=== PATIENT | male | born 1940 | race Caucasian/White ===

== ENCOUNTER 2016-11-02 13:44 | Inpatient (IN) | payer OTHER, BC ==
[~2016-11-02] VITALS: Ht 175.3 cm; Wt 65.5 kg
[~2016-11-02 13:44] MED LIST: ATORVASTATIN CA40 MG PO; CANASA1000 MG PR; CEFPODOXIME PR100 MG PO; CLOBETASOL PRO100 GM TP; CLOBETASOL PROP50 ML TP; CLOPIDOGREL75 MG PO; COLACE100 MG PO; DEXTROSE 50%50 ML IV; DIASTAT2.5 MG PO; EXTRA STRENGTH500 M1 PO; GLIPIZIDE XL5 MG PO; GLIPIZIDE5 MG PO; GLUCAGON1 MG IM; GLUCOTROL XL5 MG PO; GLUCOTROL5 MG PO; HEPARIN SO5000 UNITS SQ; HUMALOG100 UNIT/2 SC; LANTUS 3 M100 UNITS1 SC; LANTUS 3 M100 UNITS1 SQ; LIDOCAINE700 MG TD; LIPITOR40 MG PO; LO-DOSE ASPIRIN81 M1 PO; LOPRESSOR50 MG PO; MAALOX ADVANCE355 ML PO; METFORMIN HCL500 M4 PO; METFORMIN HCL500 MG PO; METHOTREXATE2.5 MG PO; METOPROLOL TART25 MG PO; MIRALAX17 GM PO; NITROSTAT0.4 MG SL; NOVOLOG PE100 UNITS/ SQ; ONDANSETRON HCL4 MG PO; OXYCODONE HCL10 MG PO; PHENERGAN-CODE120 ML PO; POLYETHYLENE GL17 GM PO; PRILOSEC OTC20 MG PO; PRILOSEC20 MG PO; PROTONIX40 MG PO; REGLAN10 MG PO; ROXICODONE5 MG PO; SENOKOT,SENN1 TABLET PO; SORE THROAT LO1 EAC2 PO; ULTRAVATE15 G1 TP; VENTOLIN HFA18 GM IH
[2016-11-02 14:54] LABS: EOSINOPHIL (%) 0.5 % (0-5); HEMATOCRIT 30.1 % (38.0-50.0); IMMATURE GRANULOCYTE (%) 0.2 % (0.0-0.7); INSTRUMENT ABS NEUTROPHIL CT 2.9 K/uL; LYMPHOCYTE COUNT 1.1 K/uL (1.0-2.8); MCH 30.9 PG (29.0-34.0); MCHC 31.2 G/DL (30.0-36.0); MEAN PLAT.VOLUME 9.8 uM^3 (9.0-12.4); MONOCYTE (%) 3.3 % (3-12); MONOCYTE COUNT 0.1 K/uL (0-0.8); NEUTROPHIL (%) 70.1 % (45-76); NEUTROPHIL COUNT 2.9 K/uL (1.8-6.4); NRBC (%) 0.5 /100 WBC (0-0); PLATELET COUNT 199 K/uL (156-360); RBC DIS.WIDTH-CV 18.5 % (11.8-14.6); RBC DIS.WIDTH-SD 66.2 % (39-53); RED BLOOD COUNT 3.04 M/uL (4.00-5.50); WHITE BLOOD COUNT 4.2 K/uL (4.1-10.2)
[2016-11-02 14:59] LABS: INTER. NORMALIZED RATIO 1.5; PROTHROMBIN TIME 16.5 SEC (10.2-12.9)
[2016-11-02 15:02] LABS: PTT 32.2 SEC (25-37)
[2016-11-02 15:04] LABS: CHLORIDE 103 mEq/L (99-109); POTASSIUM 4.5 mEq/L (3.7-5.4); SODIUM 137 mEq/L (136-147)
[2016-11-02 15:06] LABS: GLUCOSE 285 mg/dL (70-99)
[2016-11-02 15:07] LABS: ANION GAP 10 MEQ/L (2-14)
[2016-11-02 15:10] LABS: GFR ESTIMATE (CALCULATED) 45 mL/min/
[2016-11-02 15:11] LABS: UREA NITROGEN (BUN) 27 mg/dL (9-23)
[2016-11-02 15:21] LABS: ADD MIUA? YES; BILIRUBIN NEGATIVE; BLOOD SMALL; COLOR YELLOW ((YELLOW)); GLUCOSE (STRIP) >=500; KETONES NEGATIVE; LEUKOCYTES SMALL; NITRITE NEGATIVE; PROTEIN (STRIP) 30; SPECIFIC GRAVITY 1.016 (1.000-1.030); UROBILINOGEN 0.2 MG/DL (0.2-1.0)
[2016-11-02 15:41] LABS: BACTERIA NONE SEEN /HPF; EPITHELIAL CELLS RARE /HPF; MUCUS NONE SEEN /LPF; UCUL ADDED? YES; WHITE BLOOD CELLS 20-30 /HPF (0-5)
[2016-11-02] MEDS ORDERED: PLAVIX75 MG PO (16:14)
[2016-11-02] MEDS ORDERED: MIRALAX255 GM PO (16:15)
[2016-11-02] MEDS ORDERED: PROTONIX40 MG PO (16:16)
[2016-11-02] MEDS ORDERED: PREDNISONE5 MG PO (16:17)
[2016-11-02] MEDS ORDERED: BACTRIM,SEPT1 TABLET PO (16:17)
[2016-11-02] MEDS ORDERED: SERTRALINE HCL50 MG PO (16:17)
[2016-11-02] MEDS ORDERED: TRAZODONE HCL50 MG PO (16:17)
[2016-11-02 17:38] VITALS: BP 128/72
[2016-11-02 18:47] VITALS: BP 150/78
[2016-11-02 21:08] LABS: POINT-OF-CARE METER ID UU14208750
[2016-11-02 23:44] VITALS: BP 158/77
[2016-11-03 03:11] VITALS: BP 152/75
[2016-11-03 07:50] VITALS: BP 123/77
[2016-11-03 08:37] LABS: HEMATOCRIT 32.8 % (38.0-50.0); MCV 101.5 FL (86-99)
[2016-11-03 09:51] LABS: POINT-OF-CARE METER ID UU14162508
[2016-11-03 11:40] VITALS: BP 139/80
[2016-11-03 11:54] LABS: POINT-OF-CARE METER ID UU14208750
[2016-11-03 12:50] LABS: ANION GAP 11 MEQ/L (2-14); CHLORIDE 102 MEQ/L (99-109); POTASSIUM 4.1 MEQ/L (3.7-5.4); SAMPLE HEMOLYSIS CHECK 0; SAMPLE ICTERIC CHECK 0; SAMPLE LIPEMIA CHECK 0; SODIUM 139 MEQ/L (136-147)
[2016-11-03 12:56] LABS: GFR ESTIMATE (CALCULATED) > 59 mL/min/; GLUCOSE 183 mg/dL (70-99); UREA NITROGEN (BUN) 17 mg/dL (9-23)
[2016-11-03] MEDS ORDERED: CANASA1000 MG PR (15:01)
[2016-11-03 15:10] VITALS: BP 126/77
== END 2016-11-03 16:56 | disposition home or self-care (01) | DRG 378 ==
LOC: EME 13:44 → 2EAST 16:11 → EDOF 16:11 → ENRESERV 16:15 → 2EAST 17:27
PROVIDERS: Emergency Medicine; Internal Medicine
DX: K92.1 Melena (principal); N17.9 Acute kidney failure, unspecified; K62.6 Ulcer of anus and rectum; K64.9 Unspecified hemorrhoids; E86.0 Dehydration; K59.00 Constipation, unspecified; D64.9 Anemia, unspecified; I10 Essential (primary) hypertension; I25.10 Atherosclerotic heart disease of native coronary artery without angina pectoris; E78.5 Hyperlipidemia, unspecified; E11.9 Type 2 diabetes mellitus without complications; R32 Unspecified urinary incontinence; K21.9 Gastro-esophageal reflux disease without esophagitis; L40.9 Psoriasis, unspecified; F39 Unspecified mood [affective] disorder; Z79.02 Long term (current) use of antithrombotics/antiplatelets; Z79.4 Long term (current) use of insulin; Z79.82 Long term (current) use of aspirin; Z87.440 Personal history of urinary (tract) infections; Z85.46 Personal history of malignant neoplasm of prostate; Z95.1 Presence of aortocoronary bypass graft; Z95.5 Presence of coronary angioplasty implant and graft; Z92.3 Personal history of irradiation; Z87.891 Personal history of nicotine dependence; I25.2 Old myocardial infarction; Z86.73 Personal history of transient ischemic attack (TIA), and cerebral infarction without residual deficits
CPT/HCPCS: 71010; 80048; 81003; 82948; 85014; 85018; 85025; 85610; 85730; 86850; 86900; 86901; 87086 GA; 99281; 99285; C9113; J0696; J1815; J7030; J7050; J7512

== ENCOUNTER 2016-11-25 15:51 | Emergency (ER) | payer OTHER, BC ==
[~2016-11-25] VITALS: Ht 175.3 cm; Wt 62.7 kg
[~2016-11-25 15:51] MED LIST changes: +BACTRIM,SEPT1 TABLET PO; +MIRALAX255 GM PO; +PLAVIX75 MG PO; +PREDNISONE5 MG PO; +SERTRALINE HCL50 MG PO; +TRAZODONE HCL50 MG PO
[2016-11-25 17:58] LABS: HEMATOCRIT 29.8 % (38.0-50.0); MCH 31.6 PG (29.0-34.0); MCHC 31.2 G/DL (30.0-36.0); MCV 101.4 FL (86-99); MEAN PLAT.VOLUME 8.8 uM^3 (9.0-12.4); PLATELET COUNT 220 K/uL (156-360); RBC DIS.WIDTH-CV 17.8 % (11.8-14.6); RED BLOOD COUNT 2.94 M/uL (4.00-5.50); WHITE BLOOD COUNT 4.9 K/uL (4.1-10.2)
[2016-11-25 18:08] LABS: CHLORIDE 102 mEq/L (99-109); POTASSIUM 4.6 mEq/L (3.7-5.4); SODIUM 139 mEq/L (136-147)
[2016-11-25 18:11] LABS: GLUCOSE 235 mg/dL (70-99)
[2016-11-25 18:12] LABS: ANION GAP 14 MEQ/L (2-14); TOTAL BILIRUBIN 0.4 mg/dL (0.0-1.0)
[2016-11-25 18:14] LABS: ALKALINE PHOSPHATASE 162 IU/L (3-129); GFR ESTIMATE (CALCULATED) 48 mL/min/
[2016-11-25 18:15] LABS: UREA NITROGEN (BUN) 35 mg/dL (9-23)
[2016-11-25 18:19] LABS: ADD MIUA? YES; BILIRUBIN NEGATIVE; BLOOD MODERATE; COLOR YELLOW ((YELLOW)); GLUCOSE (STRIP) >=500; KETONES NEGATIVE; LEUKOCYTES LARGE; NITRITE NEGATIVE; PROTEIN (STRIP) 100; SPECIFIC GRAVITY 1.024 (1.000-1.030); UROBILINOGEN 0.2 MG/DL (0.2-1.0)
[2016-11-25 18:25] LABS: BACTERIA RARE /HPF; EPITHELIAL CELLS RARE /HPF; HYALINE CASTS 0-5 /LPF; MUCUS TRACE /LPF; RED BLOOD CELLS 15-20 /HPF (0-5); UCUL ADDED? YES; WHITE BLOOD CELLS TNTC /HPF (0-5)
[2016-11-25] MEDS ORDERED: NORCO 5/3251 TABLET PO (21:06)
[2016-11-25 21:54] VITALS: BP 111/79
== END 2016-11-25 21:56 | disposition home or self-care (01) ==
LOC: EME 15:51
PROVIDERS: Physician Assistant
DX: S22.088A Other fracture of T11-T12 vertebra, initial encounter for closed fracture (principal); S32.018A Other fracture of first lumbar vertebra, initial encounter for closed fracture; W19.XXXA Unspecified fall, initial encounter; D64.9 Anemia, unspecified; N39.498 Other specified urinary incontinence; Z91.81 History of falling; R29.6 Repeated falls; I10 Essential (primary) hypertension; I25.2 Old myocardial infarction; K21.9 Gastro-esophageal reflux disease without esophagitis; Z79.02 Long term (current) use of antithrombotics/antiplatelets; Z79.4 Long term (current) use of insulin; Z85.46 Personal history of malignant neoplasm of prostate; Z86.73 Personal history of transient ischemic attack (TIA), and cerebral infarction without residual deficits; Z87.891 Personal history of nicotine dependence; Z95.1 Presence of aortocoronary bypass graft; Z79.82 Long term (current) use of aspirin
CPT/HCPCS: 72128; 72131; 80053; 81003; 85027; 87077; 87086; 87186; 99281; 99285

== ENCOUNTER 2017-01-16 19:06 | Inpatient (IN) | payer OTHER, BC ==
[~2017-01-16] VITALS: Ht 175.3 cm; Wt 54.4 kg
[~2017-01-16 19:06] MED LIST changes: +NORCO 5/3251 TABLET PO
[2017-01-16 22:38] LABS: EOSINOPHIL (%) 0.2 % (0-5); HEMATOCRIT 27.7 % (38.0-50.0); IMMATURE GRANULOCYTE (%) 0.6 % (0.0-0.7); INSTRUMENT ABS NEUTROPHIL CT 3.5 K/uL; LYMPHOCYTE COUNT 1.8 K/uL (1.0-2.8); MCH 31.3 PG (29.0-34.0); MCHC 30.3 G/DL (30.0-36.0); MCV 103.4 FL (86-99); MEAN PLAT.VOLUME 8.7 uM^3 (9.0-12.4); MONOCYTE (%) 1.8 % (3-12); MONOCYTE COUNT 0.1 K/uL (0-0.8); NEUTROPHIL (%) 64.4 % (45-76); NEUTROPHIL COUNT 3.5 K/uL (1.8-6.4); PLATELET COUNT 267 K/uL (156-360); RBC DIS.WIDTH-CV 18.6 % (11.8-14.6); RED BLOOD COUNT 2.68 M/uL (4.00-5.50); WHITE BLOOD COUNT 5.5 K/uL (4.1-10.2)
[2017-01-16 22:48] LABS: CHLORIDE 102 mEq/L (99-109); SODIUM 140 mEq/L (136-147)
[2017-01-16 22:49] LABS: GLUCOSE 94 mg/dL (70-99)
[2017-01-16 22:51] LABS: ANION GAP 11 MEQ/L (2-14)
[2017-01-16 22:53] LABS: GFR ESTIMATE (CALCULATED) 52 mL/min/
[2017-01-16 22:54] LABS: UREA NITROGEN (BUN) 27 mg/dL (9-23)
[2017-01-17] MEDS ORDERED: HYDROCODON-ACE1 EAC8 PO (00:19)
[2017-01-17 02:45] VITALS: BP 128/68
[2017-01-17 02:48] VITALS: BP 128/68
[2017-01-17 05:54] LABS: ADD MIUA? YES; BILIRUBIN NEGATIVE; BLOOD SMALL; COLOR YELLOW ((YELLOW)); GLUCOSE (STRIP) 50; KETONES NEGATIVE; LEUKOCYTES LARGE; NITRITE NEGATIVE; PROTEIN (STRIP) 100; SPECIFIC GRAVITY 1.012 (1.000-1.030); UROBILINOGEN 0.2 MG/DL (0.2-1.0)
[2017-01-17 07:01] LABS: POINT-OF-CARE METER ID UU14208753
[2017-01-17 07:19] LABS: EPITHELIAL CELLS NONE SEEN /HPF; MUCUS NONE SEEN /LPF; RED BLOOD CELLS NONE SEEN /HPF (0-5)
[2017-01-17 07:20] LABS: BACTERIA 2+ /HPF; CRYSTALS PRESENT; UCUL ADDED? YES
[2017-01-17 07:29] VITALS: BP 132/77
[2017-01-17 11:31] LABS: POINT-OF-CARE METER ID UU14188577
[2017-01-17 15:11] VITALS: BP 112/69
[2017-01-17 16:57] LABS: HEMATOCRIT 24.4 % (38.0-50.0); MCH 31.4 PG (29.0-34.0); MCHC 30.7 G/DL (30.0-36.0); MCV 102.1 FL (86-99); MEAN PLAT.VOLUME 8.9 uM^3 (9.0-12.4); PLATELET COUNT 263 K/uL (156-360); RBC DIS.WIDTH-CV 18.2 % (11.8-14.6); RBC DIS.WIDTH-SD 68.3 % (39-53); RED BLOOD COUNT 2.39 M/uL (4.00-5.50)
[2017-01-17 17:10] LABS: ANION GAP 11 MEQ/L (2-14); CHLORIDE 101 MEQ/L (99-109); POTASSIUM 4.4 MEQ/L (3.7-5.4); SAMPLE HEMOLYSIS CHECK 0; SAMPLE ICTERIC CHECK 0; SAMPLE LIPEMIA CHECK 0; SODIUM 137 MEQ/L (136-147); TOTAL BILIRUBIN 0.3 MG/DL (0.0-1.0)
[2017-01-17 17:15] LABS: ALKALINE PHOSPHATASE 156 IU/L (3-129); GFR ESTIMATE (CALCULATED) 52 mL/min/; UREA NITROGEN (BUN) 27 mg/dL (9-23)
[2017-01-17 17:16] LABS: GLUCOSE 175 mg/dL (70-99)
[2017-01-17 21:42] LABS: POINT-OF-CARE METER ID UU14188577
[2017-01-17 21:42] LABS: POINT-OF-CARE METER ID UU14149397
[2017-01-17 23:14] VITALS: BP 129/77
[2017-01-18 05:12] VITALS: BP 126/77
[2017-01-18 06:00] LABS: HEMATOCRIT 24.1 % (38.0-50.0); MCH 32.8 PG (29.0-34.0); MCV 102.6 FL (86-99); MEAN PLAT.VOLUME 9.2 uM^3 (9.0-12.4); PLATELET COUNT 257 K/uL (156-360); RBC DIS.WIDTH-CV 18.3 % (11.8-14.6); RBC DIS.WIDTH-SD 68.1 % (39-53); RED BLOOD COUNT 2.35 M/uL (4.00-5.50); WHITE BLOOD COUNT 5.1 K/uL (4.1-10.2)
[2017-01-18 06:36] LABS: POINT-OF-CARE METER ID UU13113712
[2017-01-18 07:27] LABS: ANION GAP 10 MEQ/L (2-14); CHLORIDE 103 MEQ/L (99-109); GFR ESTIMATE (CALCULATED) > 59 mL/min/; POTASSIUM 4.2 MEQ/L (3.7-5.4); SAMPLE HEMOLYSIS CHECK 0; SAMPLE ICTERIC CHECK 0; SAMPLE LIPEMIA CHECK 0; SODIUM 140 MEQ/L (136-147); UREA NITROGEN (BUN) 25 mg/dL (9-23)
[2017-01-18 07:29] LABS: GLUCOSE 80 mg/dL (70-99)
[2017-01-18 08:10] VITALS: BP 134/84
[2017-01-18 09:07] LABS: IMMUNOGLOBULIN A 2432 MG/DL (40-350); IMMUNOGLOBULIN G 338 MG/DL (650-1600); IMMUNOGLOBULIN M 27 MG/DL (50-300)
[2017-01-18 11:11] LABS: POINT-OF-CARE METER ID UU14117124
[2017-01-18 15:02] VITALS: BP 121/67
[2017-01-18 16:07] LABS: POINT-OF-CARE METER ID UU14117124
[2017-01-18 21:27] LABS: POINT-OF-CARE METER ID UU14188577
[2017-01-18 23:41] VITALS: BP 138/75
[2017-01-19 07:56] LABS: POINT-OF-CARE METER ID UU14149397
[2017-01-19 08:27] VITALS: BP 146/78
[2017-01-19 08:27] LABS: MCH 32.6 PG (29.0-34.0); MCHC 31.6 G/DL (30.0-36.0); MCV 103.3 FL (86-99); PLATELET COUNT 250 K/uL (156-360); RBC DIS.WIDTH-CV 18.2 % (11.8-14.6); RED BLOOD COUNT 2.42 M/uL (4.00-5.50); WHITE BLOOD COUNT 5.3 K/uL (4.1-10.2)
[2017-01-19 09:01] LABS: ANION GAP 7 MEQ/L (2-14); CHLORIDE 106 MEQ/L (99-109); POTASSIUM 3.8 MEQ/L (3.7-5.4); SAMPLE HEMOLYSIS CHECK 0; SAMPLE ICTERIC CHECK 0; SAMPLE LIPEMIA CHECK 0; SODIUM 142 MEQ/L (136-147)
[2017-01-19 09:07] LABS: GFR ESTIMATE (CALCULATED) > 59 mL/min/; GLUCOSE 95 mg/dL (70-99); UREA NITROGEN (BUN) 22 mg/dL (9-23)
[2017-01-19 16:43] VITALS: BP 118/64
[2017-01-19 17:10] LABS: POINT-OF-CARE METER ID UU14188577
[2017-01-19 18:35] LABS: URINE TOTAL PROTEIN 91 MG/DL (0-10)
[2017-01-19 22:14] LABS: POINT-OF-CARE METER ID UU14188577
[2017-01-19 23:54] VITALS: BP 120/69
[2017-01-20] VITALS (9 sets, daily range): BP systolic 115–154; BP diastolic 64–85
[2017-01-20 06:29] LABS: POINT-OF-CARE METER ID UU14117124
[2017-01-20 07:42] LABS: EOSINOPHIL (%) 1.6 % (0-5); EOSINOPHIL COUNT 0.1 K/uL (0-0.3); HEMATOCRIT 23.1 % (38.0-50.0); IMMATURE GRANULOCYTE (%) 0.2 % (0.0-0.7); INSTRUMENT ABS NEUTROPHIL CT 2.6 K/uL; LYMPHOCYTE COUNT 1.7 K/uL (1.0-2.8); MCH 31.6 PG (29.0-34.0); MCHC 30.7 G/DL (30.0-36.0); MCV 102.7 FL (86-99); MEAN PLAT.VOLUME 9.4 uM^3 (9.0-12.4); MONOCYTE (%) 1.6 % (3-12); MONOCYTE COUNT 0.1 K/uL (0-0.8); NEUTROPHIL (%) 58.5 % (45-76); NEUTROPHIL COUNT 2.6 K/uL (1.8-6.4); PLATELET COUNT 229 K/uL (156-360); RBC DIS.WIDTH-CV 18.1 % (11.8-14.6); RBC DIS.WIDTH-SD 66.9 % (39-53); RED BLOOD COUNT 2.25 M/uL (4.00-5.50); WHITE BLOOD COUNT 4.5 K/uL (4.1-10.2)
[2017-01-20 08:04] LABS: ANION GAP 7 MEQ/L (2-14); CHLORIDE 108 MEQ/L (99-109); GFR ESTIMATE (CALCULATED) > 59 mL/min/; GLUCOSE 82 mg/dL (70-99); POTASSIUM 3.8 MEQ/L (3.7-5.4); SAMPLE HEMOLYSIS CHECK 0; SAMPLE ICTERIC CHECK 0; SAMPLE LIPEMIA CHECK 0; SODIUM 142 MEQ/L (136-147); UREA NITROGEN (BUN) 20 mg/dL (9-23)
[2017-01-20 11:53] LABS: POINT-OF-CARE METER ID UU14117124
[2017-01-20 14:01] LABS: ALBUMIN 2.59 G/DL (3.6-4.9); ALBUMIN PERCENT 33.2 % (49.3-67.1); ALPHA-1 GLOBULIN 0.45 G/DL (0.15-0.40); ALPHA-1 PERCENT 5.8 % (2.1-5.5); ALPHA-2 GLOBULIN 1.07 G/DL (0.45-0.85); ALPHA-2 PERCENT 13.7 % (6.2-11.6); BETA PERCENT 10.7 % (8.9-15.8); GAMMA PERCENT 36.6 % (8.6-18.6)
[2017-01-20 16:44] LABS: POINT-OF-CARE METER ID UU14188577
[2017-01-20 21:34] LABS: POINT-OF-CARE METER ID UU14117124
[2017-01-20 22:01] LABS: EOSINOPHIL (%) 0.8 % (0-5); HEMATOCRIT 29.9 % (38.0-50.0); IMMATURE GRANULOCYTE (%) 0.4 % (0.0-0.7); INSTRUMENT ABS NEUTROPHIL CT 3.1 K/uL; MCH 30.2 PG (29.0-34.0); MCHC 31.8 G/DL (30.0-36.0); MCV 94.9 FL (86-99); MEAN PLAT.VOLUME 9.1 uM^3 (9.0-12.4); MONOCYTE (%) 1.3 % (3-12); MONOCYTE COUNT 0.1 K/uL (0-0.8); NEUTROPHIL (%) 58.8 % (45-76); NEUTROPHIL COUNT 3.1 K/uL (1.8-6.4); PLATELET COUNT 231 K/uL (156-360); RBC DIS.WIDTH-CV 21.1 % (11.8-14.6); RBC DIS.WIDTH-SD 72.4 % (39-53); RED BLOOD COUNT 3.15 M/uL (4.00-5.50); WHITE BLOOD COUNT 5.3 K/uL (4.1-10.2)
[2017-01-21 00:44] VITALS: BP 147/79
[2017-01-21 06:40] LABS: EOSINOPHIL (%) 1.2 % (0-5); EOSINOPHIL COUNT 0.1 K/uL (0-0.3); IMMATURE GRANULOCYTE (%) 0.4 % (0.0-0.7); INSTRUMENT ABS NEUTROPHIL CT 3.1 K/uL; LYMPHOCYTE COUNT 1.6 K/uL (1.0-2.8); MCH 30.4 PG (29.0-34.0); MCHC 31.9 G/DL (30.0-36.0); MCV 95.1 FL (86-99); MEAN PLAT.VOLUME 9.3 uM^3 (9.0-12.4); MONOCYTE (%) 1.7 % (3-12); MONOCYTE COUNT 0.1 K/uL (0-0.8); NEUTROPHIL (%) 64.3 % (45-76); NEUTROPHIL COUNT 3.1 K/uL (1.8-6.4); NRBC (%) 0.6 /100 WBC (0-0); PLATELET COUNT 242 K/uL (156-360); RBC DIS.WIDTH-CV 21.7 % (11.8-14.6); RBC DIS.WIDTH-SD 74.4 % (39-53); RED BLOOD COUNT 3.26 M/uL (4.00-5.50); WHITE BLOOD COUNT 4.8 K/uL (4.1-10.2)
[2017-01-21 06:55] LABS: POINT-OF-CARE METER ID UU14208753
[2017-01-21 07:05] LABS: ANION GAP 10 MEQ/L (2-14); CHLORIDE 103 MEQ/L (99-109); GFR ESTIMATE (CALCULATED) > 59 mL/min/; GLUCOSE 146 mg/dL (70-99); POTASSIUM 4.1 MEQ/L (3.7-5.4); SAMPLE HEMOLYSIS CHECK 0; SAMPLE ICTERIC CHECK 0; SAMPLE LIPEMIA CHECK 0; SODIUM 141 MEQ/L (136-147); UREA NITROGEN (BUN) 22 mg/dL (9-23)
[2017-01-21 07:25] VITALS: BP 158/88
[2017-01-21 07:50] LABS: POINT-OF-CARE METER ID UU14149397
[2017-01-21 11:39] LABS: POINT-OF-CARE METER ID UU14149397
[2017-01-21 15:40] VITALS: BP 156/78
[2017-01-21 16:43] LABS: POINT-OF-CARE METER ID UU14149397
[2017-01-21 21:19] LABS: POINT-OF-CARE METER ID UU14117124
[2017-01-21 23:54] VITALS: BP 141/73
[2017-01-22 06:43] LABS: POINT-OF-CARE METER ID UU14149397
[2017-01-22 07:00] LABS: EOSINOPHIL (%) 1.5 % (0-5); EOSINOPHIL COUNT 0.1 K/uL (0-0.3); HEMATOCRIT 30.3 % (38.0-50.0); IMMATURE GRANULOCYTE (%) 0.2 % (0.0-0.7); INSTRUMENT ABS NEUTROPHIL CT 2.8 K/uL; LYMPHOCYTE COUNT 1.6 K/uL (1.0-2.8); MCH 30.7 PG (29.0-34.0); MCV 95.9 FL (86-99); MEAN PLAT.VOLUME 9.4 uM^3 (9.0-12.4); MONOCYTE (%) 1.5 % (3-12); MONOCYTE COUNT 0.1 K/uL (0-0.8); NEUTROPHIL (%) 61.4 % (45-76); NEUTROPHIL COUNT 2.8 K/uL (1.8-6.4); PLATELET COUNT 223 K/uL (156-360); RBC DIS.WIDTH-CV 20.9 % (11.8-14.6); RED BLOOD COUNT 3.16 M/uL (4.00-5.50); WHITE BLOOD COUNT 4.6 K/uL (4.1-10.2)
[2017-01-22 07:24] LABS: ANION GAP 11 MEQ/L (2-14); CHLORIDE 103 MEQ/L (99-109); GFR ESTIMATE (CALCULATED) > 59 mL/min/; GLUCOSE 147 mg/dL (70-99); POTASSIUM 3.8 MEQ/L (3.7-5.4); SAMPLE HEMOLYSIS CHECK 0; SAMPLE ICTERIC CHECK 0; SAMPLE LIPEMIA CHECK 0; SODIUM 138 MEQ/L (136-147); UREA NITROGEN (BUN) 27 mg/dL (9-23)
[2017-01-22 08:06] VITALS: BP 148/88
[2017-01-22 11:37] LABS: POINT-OF-CARE METER ID UU14149397
[2017-01-22 15:47] VITALS: BP 119/75
[2017-01-22 16:02] LABS: POINT-OF-CARE METER ID UU14117124
[2017-01-22 21:41] VITALS: BP 139/81
[2017-01-22 21:59] LABS: POINT-OF-CARE METER ID UU14117124
[2017-01-22 23:10] VITALS: BP 160/82
[2017-01-23 06:41] LABS: POINT-OF-CARE METER ID UU14117124
[2017-01-23 07:07] LABS: EOSINOPHIL (%) 1.4 % (0-5); EOSINOPHIL COUNT 0.1 K/uL (0-0.3); HEMATOCRIT 30.5 % (38.0-50.0); IMMATURE GRANULOCYTE (%) 0.7 % (0.0-0.7); INSTRUMENT ABS NEUTROPHIL CT 2.5 K/uL; LYMPHOCYTE COUNT 1.6 K/uL (1.0-2.8); MCH 30.8 PG (29.0-34.0); MCHC 31.8 G/DL (30.0-36.0); MCV 96.8 FL (86-99); MEAN PLAT.VOLUME 9.2 uM^3 (9.0-12.4); MONOCYTE (%) 2.3 % (3-12); MONOCYTE COUNT 0.1 K/uL (0-0.8); NEUTROPHIL COUNT 2.5 K/uL (1.8-6.4); PLATELET COUNT 207 K/uL (156-360); RBC DIS.WIDTH-CV 20.3 % (11.8-14.6); RBC DIS.WIDTH-SD 71.6 % (39-53); RED BLOOD COUNT 3.15 M/uL (4.00-5.50); WHITE BLOOD COUNT 4.3 K/uL (4.1-10.2)
[2017-01-23 07:25] VITALS: BP 114/67
[2017-01-23 08:19] LABS: ANION GAP 14 MEQ/L (2-14); CHLORIDE 108 MEQ/L (99-109); GFR ESTIMATE (CALCULATED) > 59 mL/min/; GLUCOSE 107 mg/dL (70-99); POTASSIUM 3.8 MEQ/L (3.7-5.4); SAMPLE HEMOLYSIS CHECK 0; SAMPLE ICTERIC CHECK 0; SAMPLE LIPEMIA CHECK 0; SODIUM 146 MEQ/L (136-147); UREA NITROGEN (BUN) 25 mg/dL (9-23)
[2017-01-23 11:36] LABS: POINT-OF-CARE METER ID UU14117124
[2017-01-23 16:19] VITALS: BP 118/79
[2017-01-23 16:58] LABS: POINT-OF-CARE METER ID UU14188577
[2017-01-23] MEDS ORDERED: CEFTIN500 MG PO (17:06)
[2017-01-23] MEDS ORDERED: LOPRESSOR50 MG PO (17:07)
[2017-01-23] MEDS ORDERED: LANTUS 3 M100 UNITS1 SC (17:08)
[2017-01-23] MEDS ORDERED: NOVOLOG PE100 UNITS/ SC (17:08)
[2017-01-23] MEDS ORDERED: VIVA PATCH1 EACH TP (17:10)
[2017-01-23] MEDS ORDERED: FAMOTIDINE20 MG PO (17:13)
[2017-01-23] MEDS ORDERED: ENDOCET 5-3251 EACH PO (17:16)
[2017-01-23] MEDS ORDERED: HYDROCODON-ACE1 EAC7 PO (17:16)
[2017-01-23 20:35] VITALS: BP 119/68
[2017-01-23 21:00] LABS: POINT-OF-CARE METER ID UU14208753
== END 2017-01-23 22:03 | DRG 536 ==
LOC: EME 19:06 → EDOF 01-17 00:51 → ENRESERV 01-17 01:23 → 3EAST 01-17 02:28
PROVIDERS: Emergency Medicine; Hospitalist; Internal Medicine
PROC: 30233N1 Transfusion of Nonautologous Red Blood Cells into Peripheral Vein, Percutaneous Approach (ICD-10-PCS; principal; 2017-01-20)
DX: S32.591A Other specified fracture of right pubis, initial encounter for closed fracture (principal); R26.2 Difficulty in walking, not elsewhere classified; E83.52 Hypercalcemia; N39.0 Urinary tract infection, site not specified; I25.10 Atherosclerotic heart disease of native coronary artery without angina pectoris; I50.9 Heart failure, unspecified; D63.8 Anemia in other chronic diseases classified elsewhere; D53.9 Nutritional anemia, unspecified; L40.9 Psoriasis, unspecified; R53.1 Weakness; R80.9 Proteinuria, unspecified; I11.0 Hypertensive heart disease with heart failure; C90.00 Multiple myeloma not having achieved remission; F39 Unspecified mood [affective] disorder; E78.5 Hyperlipidemia, unspecified; K21.9 Gastro-esophageal reflux disease without esophagitis; E11.9 Type 2 diabetes mellitus without complications; F03.90 Unspecified dementia, unspecified severity, without behavioral disturbance, psychotic disturbance, mood disturbance, and anxiety; F32.9 Major depressive disorder, single episode, unspecified; W01.0XXA Fall on same level from slipping, tripping and stumbling without subsequent striking against object, initial encounter; I25.2 Old myocardial infarction; Z85.46 Personal history of malignant neoplasm of prostate; Z86.73 Personal history of transient ischemic attack (TIA), and cerebral infarction without residual deficits; Z87.891 Personal history of nicotine dependence; Z68.1 Body mass index [BMI] 19.9 or less, adult; Z95.1 Presence of aortocoronary bypass graft; Z95.5 Presence of coronary angioplasty implant and graft
CPT/HCPCS: 73502; 73552; 80048; 80053; 81003; 81050; 82232; 82306; 82330; 82784 90; 82948; 83883 90; 84156; 84165; 84166; 85025; 85025 91; 85027; 86140; 86334; 86335; 86850; 86900; 86901; 86920; 87077; 87086; 87186; 97530 GO; 97530 GP; 99281; 99285; G0378; G8978 GP CM; G8979 GP CK; G8987 GO CM; G8988 GO CL; J0696; J1170; J1644; J1815; J3010; J3489; J7030; J7050; J7512; P9016; P9040

== ENCOUNTER 2017-03-06 13:45 | Inpatient (IN) | payer OTHER, BC ==
[~2017-03-06] VITALS: Ht 175.3 cm; Wt 56.5 kg
[~2017-03-06 13:45] MED LIST changes: +CEFTIN500 MG PO; +ENDOCET 5-3251 EACH PO; +FAMOTIDINE20 MG PO; +HYDROCODON-ACE1 EAC7 PO; +HYDROCODON-ACE1 EAC8 PO; +NOVOLOG PE100 UNITS/ SC; +VIVA PATCH1 EACH TP
[2017-03-06 15:38] LABS: HEMATOCRIT 28.5 % (38.0-50.0); HEMOGLOBIN 8.9 G/DL (12.5-16.6); MCH 31.6 PG (29.0-34.0); MCHC 31.2 G/DL (30.0-36.0); MCV 101.1 FL (86-99); PLATELET COUNT 210 K/uL (156-360); RBC DIS.WIDTH-CV 19.7 % (11.8-14.6); RBC DIS.WIDTH-SD 73.8 % (39-53); RED BLOOD COUNT 2.82 M/uL (4.00-5.50); WHITE BLOOD COUNT 4.7 K/uL (4.1-10.2)
[2017-03-06 15:51] LABS: CHLORIDE 102 mEq/L (99-109); SODIUM 138 mEq/L (136-147)
[2017-03-06 15:53] LABS: GLUCOSE 307 mg/dL (70-99)
[2017-03-06 15:57] LABS: CREATININE 3.1 mg/dL (0.6-1.3); GFR ESTIMATE (CALCULATED) 21 mL/min/ (58.99-99999)
[2017-03-06 15:58] LABS: UREA NITROGEN (BUN) 51 mg/dL (9-23)
[2017-03-06 17:09] LABS: APPEARANCE CLOUDY ((CLEAR)); BILIRUBIN NEGATIVE; BLOOD SMALL; COLOR YELLOW ((YELLOW)); GLUCOSE (STRIP) >=500; KETONES NEGATIVE; LEUKOCYTES LARGE; NITRITE NEGATIVE; PROTEIN (STRIP) 100; SPECIFIC GRAVITY 1.011 (1.000-1.030); UROBILINOGEN 0.2 MG/DL (0.2-1.0)
[2017-03-06 17:32] LABS: BACTERIA 1+ /HPF; EPITHELIAL CELLS RARE /HPF; MUCUS TRACE /LPF; RED BLOOD CELLS 0-5 /HPF (0-5); UCUL ADDED? YES; WHITE BLOOD CELLS 30-40 /HPF (0-5)
[2017-03-06 19:37] LABS: CREATINE KINASE 58 IU/L (1-294)
[2017-03-06 19:40] LABS: TROP-I INTERPRETATION NEGATIVE; TROPONIN-I 0.17 ng/mL (0.0-0.30)
[2017-03-06] MEDS ORDERED: LANTUS 3 M100 UNITS1 SC (20:05)
[2017-03-06] MEDS ORDERED: OXYCODONE HCL5 MG PO (20:09)
[2017-03-06] MEDS ORDERED: CLOPIDOGREL75 MG PO (20:10)
[2017-03-06] MEDS ORDERED: BACTRIM,SEPT1 TABLET PO (20:11)
[2017-03-06] MEDS ORDERED: TYLENOL EXTRA500 MG PO (20:15)
[2017-03-06] MEDS ORDERED: DEXAMETHASONE4 MG PO (20:17)
[2017-03-06 20:21] LABS: HDL CHOLESTEROL 34 MG/DL (Desirable>=40); LDL CHOLESTEROL 40 mg/dL (Desirable<100); NON-HDL CHOLESTEROL 53 mg/dL (Desirable<160); TOTAL CHOLESTEROL 87 mg/dL (Desirable<200); TRIGLYCERIDES 66 MG/DL (Normal: <150)
[2017-03-06 21:24] VITALS: BP 131/67
[2017-03-07 00:26] VITALS: BP 158/75
[2017-03-07 03:59] VITALS: BP 135/76
[2017-03-07 06:38] LABS: HEMATOCRIT 24.3 % (38.0-50.0); HEMOGLOBIN 7.4 G/DL (12.5-16.6); MCH 30.6 PG (29.0-34.0); MCHC 30.5 G/DL (30.0-36.0); MCV 100.4 FL (86-99); PLATELET COUNT 182 K/uL (156-360); RBC DIS.WIDTH-CV 19.8 % (11.8-14.6); RBC DIS.WIDTH-SD 73.5 % (39-53); RED BLOOD COUNT 2.42 M/uL (4.00-5.50)
[2017-03-07 07:04] VITALS: BP 135/78
[2017-03-07 07:09] LABS: CHLORIDE 106 MEQ/L (99-109); GLUCOSE 167 mg/dL (70-99); POTASSIUM 4.8 MEQ/L (3.7-5.4); SODIUM 139 MEQ/L (136-147); UREA NITROGEN (BUN) 45 mg/dL (9-23)
[2017-03-07 07:12] LABS: CREATININE 2.6 MG/DL (0.6-1.3); GFR ESTIMATE (CALCULATED) 26 mL/min/ (58.99-99999)
[2017-03-07 07:21] LABS: Estimated Average Glucose 192 mg/dL (70-123); HEMOGLOBIN A1c (GLYCOHEMOGLOB) 8.3 % HGB (Below 5.7)
[2017-03-07 10:56] VITALS: BP 131/67
[2017-03-07 12:22] LABS: HEMATOCRIT 24.2 % (38.0-50.0); HEMOGLOBIN 7.6 G/DL (12.5-16.6); MCV 101.7 FL (86-99)
[2017-03-07 19:41] VITALS: BP 140/79
[2017-03-07 23:18] VITALS: BP 136/78
[2017-03-08 03:24] VITALS: BP 126/74
[2017-03-08 07:15] VITALS: BP 143/80
[2017-03-08 07:50] LABS: ALBUMIN 2.6 G/DL (3.2-4.8); ALKALINE PHOSPHATASE 126 IU/L (3-129); ALT (GPT) 12 IU/L (3-49); AST (GOT) 18 IU/L (2-34); CHLORIDE 107 MEQ/L (99-109); CREATININE 2.6 MG/DL (0.6-1.3); GFR ESTIMATE (CALCULATED) 26 mL/min/ (58.99-99999); GLUCOSE 125 mg/dL (70-99); POTASSIUM 4.1 MEQ/L (3.7-5.4); SODIUM 140 MEQ/L (136-147); UREA NITROGEN (BUN) 52 mg/dL (9-23)
[2017-03-08 08:33] LABS: IMMUNOGLOBULIN G 285 MG/DL (650-1600); IMMUNOGLOBULIN M 24 MG/DL (50-300)
[2017-03-08 09:48] VITALS: BP 132/65
[2017-03-08 11:08] LABS: DIRECT BILIRUBIN 0.2 mg/dL (0.0-0.3); TOTAL BILIRUBIN 0.3 MG/DL (0.0-1.0)
[2017-03-08 11:42] VITALS: BP 129/73
[2017-03-08 13:16] LABS: HEMATOCRIT 24.6 % (38.0-50.0); HEMOGLOBIN 7.5 G/DL (12.5-16.6); MCH 31.4 PG (29.0-34.0); MCHC 30.5 G/DL (30.0-36.0); MCV 102.9 FL (86-99); PLATELET COUNT 215 K/uL (156-360); RBC DIS.WIDTH-CV 19.9 % (11.8-14.6); RBC DIS.WIDTH-SD 76.4 % (39-53); RED BLOOD COUNT 2.39 M/uL (4.00-5.50)
[2017-03-08 16:50] VITALS: BP 123/71
[2017-03-08 19:30] VITALS: BP 146/81
[2017-03-09] VITALS (9 sets, daily range): BP systolic 120–154; BP diastolic 70–85
[2017-03-09 06:27] LABS: HEMATOCRIT 23.1 % (38.0-50.0); MCH 30.7 PG (29.0-34.0); MCHC 30.3 G/DL (30.0-36.0); MCV 101.3 FL (86-99); PLATELET COUNT 184 K/uL (156-360); RBC DIS.WIDTH-CV 19.6 % (11.8-14.6); RED BLOOD COUNT 2.28 M/uL (4.00-5.50)
[2017-03-09 06:50] LABS: ALBUMIN 2.4 G/DL (3.2-4.8); ALKALINE PHOSPHATASE 139 IU/L (3-129); ALT (GPT) 12 IU/L (3-49); AST (GOT) 20 IU/L (2-34); CHLORIDE 110 MEQ/L (99-109); CREATININE 2.3 MG/DL (0.6-1.3); GFR ESTIMATE (CALCULATED) 29 mL/min/ (58.99-99999); GLUCOSE 124 mg/dL (70-99); POTASSIUM 4.9 MEQ/L (3.7-5.4); SODIUM 140 MEQ/L (136-147); TOTAL BILIRUBIN 0.3 MG/DL (0.0-1.0); UREA NITROGEN (BUN) 54 mg/dL (9-23)
[2017-03-09 06:51] LABS: TOTAL PROTEIN 7.6 G/DL (6.4-8.3)
[2017-03-09 07:57] LABS: ABS NEUTROPHIL COUNT 2.8; BAND NEUTROPHILS 0.9 % (0-8.0); EOSINOPHIL ABS CT 0; LYMPHOCYTES 28.7 % (15.0-45.0); METAMYELOCYTES 0.9 %; SEG.NEUTROPHILS 69.5 % (46.0-76.0)
[2017-03-10] VITALS: BP 142/85
[2017-03-10 06:24] LABS: HEMATOCRIT 28.7 % (38.0-50.0); HEMOGLOBIN 9.3 G/DL (12.5-16.6); MCH 30.7 PG (29.0-34.0); MCHC 32.4 G/DL (30.0-36.0); MCV 94.7 FL (86-99); NRBC (%) 0.4 /100 WBC (0-0); PLATELET COUNT 166 K/uL (156-360); RBC DIS.WIDTH-CV 21.5 % (11.8-14.6); RBC DIS.WIDTH-SD 71.8 % (39-53); RED BLOOD COUNT 3.03 M/uL (4.00-5.50)
[2017-03-10 07:00] LABS: CHLORIDE 113 MEQ/L (99-109); SODIUM 143 MEQ/L (136-147)
[2017-03-10 07:21] LABS: CREATININE 2.2 MG/DL (0.6-1.3); GFR ESTIMATE (CALCULATED) 31 mL/min/ (58.99-99999); UREA NITROGEN (BUN) 50 mg/dL (9-23)
[2017-03-10 07:37] LABS: GLUCOSE 46 mg/dL (70-99)
[2017-03-10 08:03] VITALS: BP 155/72
[2017-03-10 16:00] VITALS: BP 140/90
[2017-03-10 22:58] VITALS: BP 162/88
[2017-03-11 06:21] LABS: HEMATOCRIT 30.5 % (38.0-50.0); HEMOGLOBIN 9.6 G/DL (12.5-16.6); MCH 29.9 PG (29.0-34.0); MCHC 31.5 G/DL (30.0-36.0); PLATELET COUNT 181 K/uL (156-360); RBC DIS.WIDTH-CV 21.2 % (11.8-14.6); RBC DIS.WIDTH-SD 73.4 % (39-53); RED BLOOD COUNT 3.21 M/uL (4.00-5.50)
[2017-03-11 07:08] LABS: CHLORIDE 111 MEQ/L (99-109); CREATININE 2.2 MG/DL (0.6-1.3); GFR ESTIMATE (CALCULATED) 31 mL/min/ (58.99-99999); POTASSIUM 4.5 MEQ/L (3.7-5.4); SODIUM 145 MEQ/L (136-147); UREA NITROGEN (BUN) 43 mg/dL (9-23)
[2017-03-11 07:13] LABS: GLUCOSE 36 mg/dL (70-99)
[2017-03-11 07:27] LABS: BASOPHIL (%) 0.2 % (0-1); EOSINOPHIL (%) 0 % (0-5); IMMATURE GRANULOCYTE (%) 0.7 % (0.0-0.7); LYMPHOCYTE (%) 23.3 % (15-42); LYMPHOCYTE COUNT 0.9 K/uL (1.0-2.8); MONOCYTE (%) 1.2 % (3-12); MONOCYTE COUNT 0.1 K/uL (0-0.8); NEUTROPHIL (%) 74.6 % (45-76)
[2017-03-11 07:35] VITALS: BP 156/93
[2017-03-11 15:35] VITALS: BP 145/82
[2017-03-11 22:20] VITALS: BP 168/90
[2017-03-12 02:29] LABS: Free Kappa/Lambda Ratio 98.44 (0.26-1.65)
[2017-03-12 06:55] VITALS: BP 159/90
[2017-03-12 11:27] LABS: ALBUMIN 2.3 G/DL (3.2-4.8); ALKALINE PHOSPHATASE 167 IU/L (3-129); ALT (GPT) 6 IU/L (3-49); AST (GOT) 18 IU/L (2-34); CHLORIDE 109 MEQ/L (99-109); CREATININE 2.2 MG/DL (0.6-1.3); GFR ESTIMATE (CALCULATED) 31 mL/min/ (58.99-99999); SODIUM 141 MEQ/L (136-147); TOTAL PROTEIN 7.6 G/DL (6.4-8.3); UREA NITROGEN (BUN) 40 mg/dL (9-23)
[2017-03-12 11:36] LABS: GLUCOSE 92 mg/dL (70-99); TOTAL BILIRUBIN 0.4 MG/DL (0.0-1.0)
[2017-03-12 15:00] VITALS: BP 158/96
[2017-03-13] VITALS (7 sets, daily range): BP systolic 134–166; BP diastolic 80–99
[2017-03-13 11:33] LABS: BASE EXCESS -6.9 mEq/L (-3 to +3); BICARBONATE 16.9 mEq/L (22-26); CARBOXY HGB 1.7 % (0-5); METHEMOGLOBIN 1.6 % (0-1.5); PCO2 28 mm Hg (35-45); pH 7.39 (7.35-7.45)
[2017-03-13 11:34] LABS: COMMENTS - BLOOD GASES A+C+; DEVICE RA; PO2 58 mm Hg (80-100); SITE LA; TOTAL RESP RATE 17 resp/min
[2017-03-13 11:58] LABS: HEMATOCRIT 31.4 % (38.0-50.0); HEMOGLOBIN 9.8 G/DL (12.5-16.6); MCH 29.8 PG (29.0-34.0); MCHC 31.2 G/DL (30.0-36.0); MCV 95.4 FL (86-99); NRBC (%) 0.6 /100 WBC (0-0); PLATELET COUNT 151 K/uL (156-360); RBC DIS.WIDTH-CV 19.8 % (11.8-14.6); RBC DIS.WIDTH-SD 69.2 % (39-53); RED BLOOD COUNT 3.29 M/uL (4.00-5.50); WHITE BLOOD COUNT 6.7 K/uL (4.1-10.2)
[2017-03-13 12:15] LABS: TROP-I INTERPRETATION NEGATIVE; TROPONIN-I 0.14 ng/mL (0.0-0.30)
[2017-03-13 12:45] LABS: CHLORIDE 104 MEQ/L (99-109); CREATININE 2.2 MG/DL (0.6-1.3); GFR ESTIMATE (CALCULATED) 31 mL/min/ (58.99-99999); POTASSIUM 4.7 MEQ/L (3.7-5.4); SODIUM 137 MEQ/L (136-147); UREA NITROGEN (BUN) 43 mg/dL (9-23)
[2017-03-13 12:46] LABS: GLUCOSE 273 mg/dL (70-99)
[2017-03-13 12:47] LABS: BASOPHIL (%) 0.2 % (0-1); EOSINOPHIL (%) 0.6 % (0-5); IMMATURE GRANULOCYTE (%) 0.6 % (0.0-0.7); LYMPHOCYTE (%) 48.7 % (15-42); LYMPHOCYTE COUNT 3.2 K/uL (1.0-2.8); MONOCYTE (%) 0.6 % (3-12); NEUTROPHIL (%) 49.3 % (45-76); NEUTROPHIL COUNT 3.3 K/uL (1.8-6.4); PLAT.SUFFICIENCY ADEQUATE
[2017-03-14] VITALS (8 sets, daily range): BP systolic 114–150; BP diastolic 58–93
[2017-03-14 06:47] LABS: CHLORIDE 106 MEQ/L (99-109); CREATININE 2.1 MG/DL (0.6-1.3); GFR ESTIMATE (CALCULATED) 33 mL/min/ (58.99-99999); SODIUM 139 MEQ/L (136-147); UREA NITROGEN (BUN) 44 mg/dL (9-23)
[2017-03-14 06:53] LABS: GLUCOSE 118 mg/dL (70-99)
[2017-03-14 07:10] LABS: BASOPHIL (%) 0 % (0-1); EOSINOPHIL (%) 1.3 % (0-5); EOSINOPHIL COUNT 0.1 K/uL (0-0.3); HEMATOCRIT 28.6 % (38.0-50.0); IMMATURE GRANULOCYTE (%) 0.5 % (0.0-0.7); LYMPHOCYTE (%) 33.4 % (15-42); LYMPHOCYTE COUNT 1.2 K/uL (1.0-2.8); MCH 29.8 PG (29.0-34.0); MCHC 31.5 G/DL (30.0-36.0); MCV 94.7 FL (86-99); MONOCYTE (%) 0.5 % (3-12); NEUTROPHIL (%) 64.3 % (45-76); NEUTROPHIL COUNT 2.4 K/uL (1.8-6.4); NRBC (%) 0.5 /100 WBC (0-0); PLATELET COUNT 125 K/uL (156-360); RBC DIS.WIDTH-CV 19.6 % (11.8-14.6); RED BLOOD COUNT 3.02 M/uL (4.00-5.50); WHITE BLOOD COUNT 3.7 K/uL (4.1-10.2)
[2017-03-15 00:12] VITALS: BP 164/80
[2017-03-15 06:36] LABS: BASOPHIL (%) 0 % (0-1); EOSINOPHIL COUNT 0.1 K/uL (0-0.3); HEMATOCRIT 28.8 % (38.0-50.0); HEMOGLOBIN 9.1 G/DL (12.5-16.6); IMMATURE GRANULOCYTE (%) 0.4 % (0.0-0.7); LYMPHOCYTE (%) 29.2 % (15-42); LYMPHOCYTE COUNT 1.4 K/uL (1.0-2.8); MCH 30.1 PG (29.0-34.0); MCHC 31.6 G/DL (30.0-36.0); MCV 95.4 FL (86-99); MONOCYTE (%) 0.6 % (3-12); NEUTROPHIL (%) 68.8 % (45-76); NEUTROPHIL COUNT 3.3 K/uL (1.8-6.4); NRBC (%) 0.4 /100 WBC (0-0); PLATELET COUNT 131 K/uL (156-360); RBC DIS.WIDTH-CV 19.1 % (11.8-14.6); RBC DIS.WIDTH-SD 66.8 % (39-53); RED BLOOD COUNT 3.02 M/uL (4.00-5.50); WHITE BLOOD COUNT 4.8 K/uL (4.1-10.2)
[2017-03-15 06:37] LABS: CHLORIDE 106 MEQ/L (99-109); GFR ESTIMATE (CALCULATED) 35 mL/min/ (58.99-99999); GLUCOSE 141 mg/dL (70-99); SODIUM 141 MEQ/L (136-147); UREA NITROGEN (BUN) 43 mg/dL (9-23)
[2017-03-15 06:40] VITALS: BP 167/99
[2017-03-15 15:05] VITALS: BP 164/90
[2017-03-16 00:09] VITALS: BP 120/72
[2017-03-16 07:41] LABS: CHLORIDE 105 MEQ/L (99-109); CREATININE 1.9 MG/DL (0.6-1.3); GFR ESTIMATE (CALCULATED) 37 mL/min/ (58.99-99999); GLUCOSE 114 mg/dL (70-99); POTASSIUM 3.6 MEQ/L (3.7-5.4); SODIUM 143 MEQ/L (136-147); UREA NITROGEN (BUN) 39 mg/dL (9-23)
[2017-03-16 08:00] VITALS: BP 149/91
[2017-03-16 15:37] VITALS: BP 138/87
[2017-03-16] MEDS ORDERED: ACYCLOVIR200 MG PO (17:04)
[2017-03-16] MEDS ORDERED: BENZONATATE100 MG PO (17:05)
[2017-03-16] MEDS ORDERED: OXYCODONE HCL5 MG PO (17:06)
[2017-03-16] MEDS ORDERED: NABI650T PO (17:06)
== END 2017-03-16 22:17 | DRG 71 ==
LOC: EME 13:45 → EDOF 18:30 → 5SOUTH 18:30 → 4WEST 18:30 → 5EAST 18:30 → ENRESERV 18:37 → 5SOUTH 20:30 → ENRESERV 03-07 20:52 → 5EAST 03-08 09:38 → ENRESERV 03-13 13:03 → 4WEST 03-13 13:30 → ENRESERV 03-14 12:17 → CANRESERV 03-14 12:17 → 4WEST 03-14 15:32 → ENRESERV 03-14 15:34 → 5EAST 03-14 17:40
PROVIDERS: Hospitalist; Internal Medicine; Internal Medicine Nephrology; Nurse Practitioner Adult Health; Physician Assistant Medical
PROC: 30233N1 Transfusion of Nonautologous Red Blood Cells into Peripheral Vein, Percutaneous Approach (ICD-10-PCS; principal; 2017-03-09)
DX: G93.41 Metabolic encephalopathy (principal); C90.00 Multiple myeloma not having achieved remission; N30.01 Acute cystitis with hematuria; N17.9 Acute kidney failure, unspecified; I13.0 Hypertensive heart and chronic kidney disease with heart failure and stage 1 through stage 4 chronic kidney disease, or unspecified chronic kidney disease; I25.10 Atherosclerotic heart disease of native coronary artery without angina pectoris; D63.0 Anemia in neoplastic disease; E11.22 Type 2 diabetes mellitus with diabetic chronic kidney disease; E11.51 Type 2 diabetes mellitus with diabetic peripheral angiopathy without gangrene; C61 Malignant neoplasm of prostate; E87.6 Hypokalemia; E78.5 Hyperlipidemia, unspecified; E86.0 Dehydration; W07.XXXA Fall from chair, initial encounter; D18.00 Hemangioma unspecified site; S32.591A Other specified fracture of right pubis, initial encounter for closed fracture; N18.3 Chronic kidney disease, stage 3 (moderate); R29.6 Repeated falls; M48.061 Spinal stenosis, lumbar region without neurogenic claudication; M48.02 Spinal stenosis, cervical region; I50.9 Heart failure, unspecified; M47.9 Spondylosis, unspecified; M43.10 Spondylolisthesis, site unspecified; N28.1 Cyst of kidney, acquired; F01.50 Vascular dementia, unspecified severity, without behavioral disturbance, psychotic disturbance, mood disturbance, and anxiety; E87.2 Acidosis; E83.52 Hypercalcemia; J98.11 Atelectasis; G89.3 Neoplasm related pain (acute) (chronic); D69.6 Thrombocytopenia, unspecified; E87.8 Other disorders of electrolyte and fluid balance, not elsewhere classified; G93.89 Other specified disorders of brain; K21.9 Gastro-esophageal reflux disease without esophagitis; Z68.1 Body mass index [BMI] 19.9 or less, adult; B96.4 Proteus (mirabilis) (morganii) as the cause of diseases classified elsewhere; L40.9 Psoriasis, unspecified; F32.9 Major depressive disorder, single episode, unspecified; I25.2 Old myocardial infarction; Z86.73 Personal history of transient ischemic attack (TIA), and cerebral infarction without residual deficits; Z95.5 Presence of coronary angioplasty implant and graft; Z98.1 Arthrodesis status; Z87.891 Personal history of nicotine dependence; Z95.1 Presence of aortocoronary bypass graft; Z85.46 Personal history of malignant neoplasm of prostate; Z79.4 Long term (current) use of insulin; Z79.52 Long term (current) use of systemic steroids; Z83.3 Family history of diabetes mellitus; Z79.82 Long term (current) use of aspirin; Z79.02 Long term (current) use of antithrombotics/antiplatelets; Z82.49 Family history of ischemic heart disease and other diseases of the circulatory system
CPT/HCPCS: 36600; 70450; 70551; 71045; 71046; 72128; 72131; 72141; 72146; 72148; 74176; 74230; 80048; 80053; 80061; 80076; 81003; 82550; 82550 91; 82784; 82803; 82948; 83036; 83605; 83883 90; 84484; 85014; 85018; 85025; 85027; 86850; 86900; 86901; 86920; 87040; 87077; 87086 GA; 87186; 87502; 87641; 92523 GN; 92526 GN; 92610 GN; 93005; 93880; 94799; 95819; 97530 GO; 99281; 99285; J0360; J0690; J0692; J0696; J1100; J1644; J1815; J2270; J2405; J7030; J7050; J7512; J9041; P9016

== ENCOUNTER → 2017-04-19 | Outpatient (CLI) | payer OTHER ==
[~2017-04-19] MED LIST changes: +ACYCLOVIR200 MG PO; +BENZONATATE100 MG PO; +DEXAMETHASONE4 MG PO; +NABI650T PO; +OXYCODONE HCL5 MG PO; +TYLENOL EXTRA500 MG PO
== END ==
LOC: RAD 13:06
DX: R13.12 Dysphagia, oropharyngeal phase (principal); Z86.73 Personal history of transient ischemic attack (TIA), and cerebral infarction without residual deficits; Z87.01 Personal history of pneumonia (recurrent); Z87.19 Personal history of other diseases of the digestive system
CPT/HCPCS: 74230; 92611 GN; G8996 GN CJ; G8997 GN CJ; G8998 GN CJ

== ENCOUNTER 2017-05-08 19:28 | Inpatient (IN) | payer OTHER, BC ==
[~2017-05-08] VITALS: Ht 175.3 cm; Wt 67.0 kg
[~2017-05-08 19:28] MED LIST changes: +DECADRON4 M1 PO; -DEXAMETHASONE4 MG PO
[2017-05-08 20:49] LABS: HEMATOCRIT 27.4 % (38.0-50.0); HEMOGLOBIN 8.8 G/DL (12.5-16.6); MCH 31.7 PG (29.0-34.0); MCHC 32.1 G/DL (30.0-36.0); MCV 98.6 FL (86-99); NRBC (%) 0.5 /100 WBC (0-0); PLATELET COUNT 99 K/uL (156-360); RBC DIS.WIDTH-CV 20.8 % (11.8-14.6); RBC DIS.WIDTH-SD 71.7 % (39-53)
[2017-05-08 20:54] LABS: RED BLOOD COUNT 2.78 M/uL (4.00-5.50)
[2017-05-08 21:00] LABS: ALBUMIN 2.3 g/dL (3.2-4.8); CHLORIDE 120 mEq/L (99-109); POTASSIUM 4.6 mEq/L (3.7-5.4); SODIUM 152 mEq/L (136-147)
[2017-05-08 21:04] LABS: TOTAL BILIRUBIN 0.3 mg/dL (0.0-1.0)
[2017-05-08 21:06] LABS: ALKALINE PHOSPHATASE 134 IU/L (3-129); GFR ESTIMATE (CALCULATED) 19 mL/min/ (58.99-99999)
[2017-05-08 21:07] LABS: UREA NITROGEN (BUN) 70 mg/dL (9-23)
[2017-05-08 21:08] LABS: AST (GOT) 17 IU/L (2-34)
[2017-05-08 21:09] LABS: ALT (GPT) 24 IU/L (3-49); LIPASE 18 U/L (1.0-51.0)
[2017-05-08 21:14] LABS: CREATININE 3.4 mg/dL (0.6-1.3)
[2017-05-08 21:22] LABS: GLUCOSE 433 mg/dL (70-99)
[2017-05-08 21:38] LABS: TROP-I INTERPRETATION POSITIVE
[2017-05-08 21:46] LABS: TROPONIN-I 1.75 ng/mL (0.0-0.30)
[2017-05-08 22:45] LABS: APPEARANCE SL.HAZY ((CLEAR)); BILIRUBIN NEGATIVE; BLOOD SMALL; COLOR YELLOW ((YELLOW)); GLUCOSE (STRIP) >=500; KETONES NEGATIVE; LEUKOCYTES MODERATE; NITRITE NEGATIVE; PROTEIN (STRIP) 100; SPECIFIC GRAVITY 1.015 (1.000-1.030); UROBILINOGEN 0.2 MG/DL (0.2-1.0)
[2017-05-08 22:52] LABS: BACTERIA RARE /HPF; EPITHELIAL CELLS NONE SEEN /HPF; MUCUS TRACE /LPF; RED BLOOD CELLS 0-5 /HPF (0-5); UCUL ADDED? YES; WHITE BLOOD CELLS 20-30 /HPF (0-5)
[2017-05-09] MEDS ORDERED: BASAGLAR K100 UNIT/1 SC (01:14)
[2017-05-09] MEDS ORDERED: CANASA1000 MG PR (01:15)
[2017-05-09] MEDS ORDERED: DECADRON4 MG PO (01:25)
[2017-05-09] MEDS ORDERED: FAMOTIDINE20 MG PO (01:27)
[2017-05-09] MEDS ORDERED: LIDODERM 5% P1 PATCH TD (01:32)
[2017-05-09] MEDS ORDERED: MEGACE 40 MG40 MG/ML PO (01:33)
[2017-05-09] MEDS ORDERED: METOPROLOL TART25 MG PO (01:37)
[2017-05-09] MEDS ORDERED: METOPROLOL TART50 MG PO (01:39)
[2017-05-09] MEDS ORDERED: NINLARO4 MG PO (01:39)
[2017-05-09] MEDS ORDERED: K-DUR20 MEQ PO (01:42)
[2017-05-09] MEDS ORDERED: ACYCLOVIR400 MG PO (01:45)
[2017-05-09] MEDS ORDERED: IRON325 M1 PO (01:47)
[2017-05-09] MEDS ORDERED: MED PASS 2.0 (01:50)
[2017-05-09] MEDS ORDERED: HUMALOG100 UNIT/2 SC (01:55)
[2017-05-09 03:15] VITALS: BP 156/115
[2017-05-09 05:33] LABS: HEMATOCRIT 27.3 % (38.0-50.0); HEMOGLOBIN 8.6 G/DL (12.5-16.6); MCH 31.3 PG (29.0-34.0); MCHC 31.5 G/DL (30.0-36.0); MCV 99.3 FL (86-99); NRBC (%) 0.6 /100 WBC (0-0); PLATELET COUNT 97 K/uL (156-360); RED BLOOD COUNT 2.75 M/uL (4.00-5.50); WHITE BLOOD COUNT 5.2 K/uL (4.1-10.2)
[2017-05-09 05:36] LABS: INTER. NORMALIZED RATIO 1.9
[2017-05-09 05:39] LABS: PTT 25.9 SEC (25-37)
[2017-05-09 05:53] LABS: CHLORIDE 118 MEQ/L (99-109); GFR ESTIMATE (CALCULATED) 22 mL/min/ (58.99-99999); GLUCOSE 346 mg/dL (70-99); POTASSIUM 4.7 MEQ/L (3.7-5.4); SODIUM 152 MEQ/L (136-147); UREA NITROGEN (BUN) 68 mg/dL (9-23)
[2017-05-09 05:54] LABS: TROP-I INTERPRETATION POSITIVE; TROPONIN-I 1.29 ng/mL (0.0-0.30)
[2017-05-09 07:32] VITALS: BP 159/113
[2017-05-09 11:35] VITALS: BP 148/114
[2017-05-09 12:29] LABS: TROP-I INTERPRETATION POSITIVE; TROPONIN-I 1.53 ng/mL (0.0-0.30)
[2017-05-09 15:00] VITALS: BP 150/112
[2017-05-09 16:36] LABS: CHLORIDE 120 MEQ/L (99-109); CREATININE 2.9 MG/DL (0.6-1.3); GFR ESTIMATE (CALCULATED) 23 mL/min/ (58.99-99999); GLUCOSE 266 mg/dL (70-99); POTASSIUM 4.5 MEQ/L (3.7-5.4); SODIUM 151 MEQ/L (136-147); UREA NITROGEN (BUN) 65 mg/dL (9-23)
[2017-05-09 20:39] VITALS: BP 118/79
[2017-05-10 00:05] VITALS: BP 136/98
[2017-05-10 03:55] VITALS: BP 135/99
[2017-05-10 06:03] LABS: HEMATOCRIT 25.3 % (38.0-50.0); HEMOGLOBIN 7.9 G/DL (12.5-16.6); MCHC 31.2 G/DL (30.0-36.0); MCV 99.2 FL (86-99); NRBC (%) 1.3 /100 WBC (0-0); PLATELET COUNT 76 K/uL (156-360); RBC DIS.WIDTH-CV 20.6 % (11.8-14.6); RBC DIS.WIDTH-SD 72.5 % (39-53); RED BLOOD COUNT 2.55 M/uL (4.00-5.50); WHITE BLOOD COUNT 5.5 K/uL (4.1-10.2)
[2017-05-10 06:42] LABS: CHLORIDE 121 MEQ/L (99-109); CREATININE 2.8 MG/DL (0.6-1.3); GFR ESTIMATE (CALCULATED) 23 mL/min/ (58.99-99999); POTASSIUM 3.9 MEQ/L (3.7-5.4); SODIUM 152 MEQ/L (136-147); UREA NITROGEN (BUN) 62 mg/dL (9-23)
[2017-05-10 06:47] LABS: GLUCOSE 59 mg/dL (70-99)
[2017-05-10 08:03] VITALS: BP 132/94
[2017-05-10 11:25] LABS: TROP-I INTERPRETATION POSITIVE
[2017-05-10 11:27] LABS: TROPONIN-I 1.84 ng/mL (0.0-0.30)
[2017-05-10 11:58] VITALS: BP 138/90
[2017-05-10 17:36] VITALS: BP 140/98
[2017-05-10 20:30] VITALS: BP 130/86
[2017-05-11] VITALS (10 sets, daily range): BP systolic 111–132; BP diastolic 69–89
[2017-05-11 06:07] LABS: HEMATOCRIT 22.3 % (38.0-50.0); HEMOGLOBIN 6.9 G/DL (12.5-16.6); MCH 31.1 PG (29.0-34.0); MCHC 30.9 G/DL (30.0-36.0); MCV 100.5 FL (86-99); NRBC (%) 1.3 /100 WBC (0-0); PLATELET COUNT 72 K/uL (156-360); RBC DIS.WIDTH-CV 20.3 % (11.8-14.6); RED BLOOD COUNT 2.22 M/uL (4.00-5.50); WHITE BLOOD COUNT 4.6 K/uL (4.1-10.2)
[2017-05-11 06:35] LABS: HEMATOCRIT 23.2 % (38.0-50.0); HEMOGLOBIN 7.1 G/DL (12.5-16.6); MCV 100.4 FL (86-99)
[2017-05-11 10:04] LABS: CHLORIDE 124 MEQ/L (99-109); CREATININE 2.7 MG/DL (0.6-1.3); GFR ESTIMATE (CALCULATED) 24 mL/min/ (58.99-99999); GLUCOSE 64 mg/dL (70-99); POTASSIUM 3.8 MEQ/L (3.7-5.4); SODIUM 156 MEQ/L (136-147); UREA NITROGEN (BUN) 54 mg/dL (9-23)
[2017-05-11 10:43] LABS: TROP-I INTERPRETATION POSITIVE; TROPONIN-I 1.54 ng/mL (0.0-0.30)
[2017-05-11 16:30] LABS: STOOL OCCULT BLD 1ST SPECIMEN NEGATIVE
[2017-05-12 05:23] LABS: HEMATOCRIT 24.1 % (38.0-50.0); HEMOGLOBIN 7.7 G/DL (12.5-16.6); MCH 30.8 PG (29.0-34.0); MCV 96.4 FL (86-99); NRBC (%) 2.1 /100 WBC (0-0); PLATELET COUNT 67 K/uL (156-360); RBC DIS.WIDTH-CV 21.4 % (11.8-14.6); RBC DIS.WIDTH-SD 73.7 % (39-53); WHITE BLOOD COUNT 4.8 K/uL (4.1-10.2)
[2017-05-12 05:44] LABS: CHLORIDE 113 MEQ/L (99-109); CREATININE 2.6 MG/DL (0.6-1.3); GFR ESTIMATE (CALCULATED) 26 mL/min/ (58.99-99999); POTASSIUM 3.2 MEQ/L (3.7-5.4); UREA NITROGEN (BUN) 42 mg/dL (9-23)
[2017-05-12 05:45] LABS: GLUCOSE 45 mg/dL (70-99); SODIUM 147 MEQ/L (136-147)
[2017-05-12 08:18] VITALS: BP 134/90
[2017-05-12 11:27] VITALS: BP 108/81
[2017-05-12 17:20] VITALS: BP 122/83
[2017-05-12 19:30] VITALS: BP 116/82
[2017-05-12 20:40] VITALS: BP 120/81
[2017-05-12 23:52] VITALS: BP 132/90
[2017-05-13 03:53] VITALS: BP 123/83
[2017-05-13 06:06] LABS: HEMATOCRIT 25.7 % (38.0-50.0); HEMOGLOBIN 8.2 G/DL (12.5-16.6); MCH 30.3 PG (29.0-34.0); MCHC 31.9 G/DL (30.0-36.0); MCV 94.8 FL (86-99); NRBC (%) 1.5 /100 WBC (0-0); PLATELET COUNT 73 K/uL (156-360); RBC DIS.WIDTH-CV 20.6 % (11.8-14.6); RBC DIS.WIDTH-SD 70.6 % (39-53); RED BLOOD COUNT 2.71 M/uL (4.00-5.50); WHITE BLOOD COUNT 3.9 K/uL (4.1-10.2)
[2017-05-13 06:31] LABS: CHLORIDE 107 MEQ/L (99-109); CREATININE 2.6 MG/DL (0.6-1.3); GFR ESTIMATE (CALCULATED) 26 mL/min/ (58.99-99999); GLUCOSE 197 mg/dL (70-99); POTASSIUM 3.3 MEQ/L (3.7-5.4); SODIUM 139 MEQ/L (136-147); UREA NITROGEN (BUN) 39 mg/dL (9-23)
[2017-05-13 07:22] VITALS: BP 131/86
[2017-05-13 11:01] VITALS: BP 110/72
[2017-05-13 15:52] VITALS: BP 172/83
[2017-05-13 20:00] VITALS: BP 123/74
[2017-05-14] VITALS (7 sets, daily range): BP systolic 110–135; BP diastolic 62–91
[2017-05-14 06:56] LABS: HEMATOCRIT 24.9 % (38.0-50.0); MCH 30.4 PG (29.0-34.0); MCHC 32.1 G/DL (30.0-36.0); MCV 94.7 FL (86-99); NRBC (%) 0.6 /100 WBC (0-0); PLATELET COUNT 66 K/uL (156-360); RBC DIS.WIDTH-CV 20.1 % (11.8-14.6); RBC DIS.WIDTH-SD 67.8 % (39-53); RED BLOOD COUNT 2.63 M/uL (4.00-5.50); WHITE BLOOD COUNT 3.2 K/uL (4.1-10.2)
[2017-05-14 07:18] LABS: BASOPHIL (%) 0 % (0-1); EOSINOPHIL (%) 1.6 % (0-5); EOSINOPHIL COUNT 0.1 K/uL (0-0.3); IMMATURE GRANULOCYTE (%) 0.3 % (0.0-0.7); LYMPHOCYTE (%) 36.4 % (15-42); LYMPHOCYTE COUNT 1.2 K/uL (1.0-2.8); MONOCYTE (%) 1.9 % (3-12); MONOCYTE COUNT 0.1 K/uL (0-0.8); NEUTROPHIL (%) 59.8 % (45-76); NEUTROPHIL COUNT 1.9 K/uL (1.8-6.4)
[2017-05-14 07:46] LABS: CHLORIDE 109 MEQ/L (99-109); CREATININE 2.5 MG/DL (0.6-1.3); GFR ESTIMATE (CALCULATED) 27 mL/min/ (58.99-99999); GLUCOSE 143 mg/dL (70-99); SODIUM 138 MEQ/L (136-147); UREA NITROGEN (BUN) 37 mg/dL (9-23)
[2017-05-14 07:47] LABS: POTASSIUM 4.4 MEQ/L (3.7-5.4)
[2017-05-14 11:35] LABS: C DIFF TOXIN POSITIVE (NEGATIVE)
[2017-05-15] VITALS (14 sets, daily range): BP systolic 111–137; BP diastolic 70–93
[2017-05-15 04:12] LABS: STOOL OCCULT BLD 1ST SPECIMEN POSITIVE
[2017-05-15 06:08] LABS: BASOPHIL (%) 0 % (0-1); EOSINOPHIL (%) 2.2 % (0-5); EOSINOPHIL COUNT 0.1 K/uL (0-0.3); HEMATOCRIT 24.1 % (38.0-50.0); HEMOGLOBIN 7.8 G/DL (12.5-16.6); IMMATURE GRANULOCYTE (%) 0.9 % (0.0-0.7); LYMPHOCYTE (%) 36.2 % (15-42); LYMPHOCYTE COUNT 1.2 K/uL (1.0-2.8); MCH 30.5 PG (29.0-34.0); MCHC 32.4 G/DL (30.0-36.0); MCV 94.1 FL (86-99); MONOCYTE (%) 1.9 % (3-12); MONOCYTE COUNT 0.1 K/uL (0-0.8); NEUTROPHIL (%) 58.8 % (45-76); NEUTROPHIL COUNT 1.9 K/uL (1.8-6.4); NRBC (%) 0.6 /100 WBC (0-0); PLATELET COUNT 69 K/uL (156-360); RBC DIS.WIDTH-CV 19.9 % (11.8-14.6); RBC DIS.WIDTH-SD 64.7 % (39-53); RED BLOOD COUNT 2.56 M/uL (4.00-5.50); WHITE BLOOD COUNT 3.2 K/uL (4.1-10.2)
[2017-05-15 07:16] LABS: CHLORIDE 109 MEQ/L (99-109); CREATININE 2.6 MG/DL (0.6-1.3); GFR ESTIMATE (CALCULATED) 26 mL/min/ (58.99-99999); GLUCOSE 162 mg/dL (70-99); PHOSPHORUS 3.9 mg/dL (2.5-4.9); SODIUM 140 MEQ/L (136-147); UREA NITROGEN (BUN) 37 mg/dL (9-23)
[2017-05-15 07:18] LABS: POTASSIUM 3.3 MEQ/L (3.7-5.4)
[2017-05-15 11:51] LABS: BASE EXCESS -4.2 mEq/L (-3 to +3); BICARBONATE 18.3 mEq/L (22-26); CARBOXY HGB 1.8 % (0-5); COMMENTS - BLOOD GASES A+C+; DEVICE RA; METHEMOGLOBIN 1.4 % (0-1.5); PCO2 24 mm Hg (35-45); PO2 77 mm Hg (80-100); SITE RR; pH 7.49 (7.35-7.45)
[2017-05-15 11:52] LABS: TOTAL RESP RATE 18 resp/min
[2017-05-16 00:35] LABS: HEMATOCRIT 29.4 % (38.0-50.0); HEMOGLOBIN 9.6 G/DL (12.5-16.6); MCV 94.2 FL (86-99)
[2017-05-16 03:45] VITALS: BP 131/86
[2017-05-16 05:55] LABS: BASOPHIL (%) 0.3 % (0-1); EOSINOPHIL COUNT 0.1 K/uL (0-0.3); HEMATOCRIT 30.2 % (38.0-50.0); HEMOGLOBIN 9.7 G/DL (12.5-16.6); IMMATURE GRANULOCYTE (%) 0.3 % (0.0-0.7); LYMPHOCYTE (%) 41.3 % (15-42); LYMPHOCYTE COUNT 1.3 K/uL (1.0-2.8); MCH 30.1 PG (29.0-34.0); MCHC 32.1 G/DL (30.0-36.0); MCV 93.8 FL (86-99); NEUTROPHIL (%) 55.1 % (45-76); NEUTROPHIL COUNT 1.7 K/uL (1.8-6.4); PLATELET COUNT 71 K/uL (156-360); RBC DIS.WIDTH-CV 18.9 % (11.8-14.6); RBC DIS.WIDTH-SD 62.1 % (39-53)
[2017-05-16 06:30] LABS: RED BLOOD COUNT 3.22 M/uL (4.00-5.50)
[2017-05-16 07:11] VITALS: BP 136/74
[2017-05-16 09:35] LABS: ALBUMIN 2.1 G/DL (3.2-4.8); CHLORIDE 108 MEQ/L (99-109); CREATININE 2.8 MG/DL (0.6-1.3); GFR ESTIMATE (CALCULATED) 23 mL/min/ (58.99-99999); GLUCOSE 140 mg/dL (70-99); IRON 93 MCG/DL (35-150); PHOSPHORUS 3.7 mg/dL (2.5-4.9); POTASSIUM 3.8 MEQ/L (3.7-5.4); SODIUM 144 MEQ/L (136-147); TRANSFERRIN (TIBC) 126.1 mg/dL (215-380); TRANSFERRIN SATUR. 74 % (20-55); UREA NITROGEN (BUN) 36 mg/dL (9-23)
[2017-05-16 11:23] VITALS: BP 118/76
[2017-05-16 15:18] VITALS: BP 121/70
[2017-05-16 20:23] VITALS: BP 139/73
[2017-05-16 23:48] VITALS: BP 120/85
[2017-05-17 03:56] VITALS: BP 120/81
[2017-05-17 06:09] LABS: HEMATOCRIT 30.1 % (38.0-50.0); HEMOGLOBIN 9.7 G/DL (12.5-16.6); MCH 30.6 PG (29.0-34.0); MCHC 32.2 G/DL (30.0-36.0); NRBC (%) 0.7 /100 WBC (0-0); PLATELET COUNT 75 K/uL (156-360); RBC DIS.WIDTH-CV 19.3 % (11.8-14.6); RBC DIS.WIDTH-SD 63.6 % (39-53); RED BLOOD COUNT 3.17 M/uL (4.00-5.50); WHITE BLOOD COUNT 2.9 K/uL (4.1-10.2)
[2017-05-17 07:19] VITALS: BP 138/89
[2017-05-17 10:30] LABS: ALBUMIN 2.2 G/DL (3.2-4.8); CHLORIDE 115 MEQ/L (99-109); CREATININE 2.5 MG/DL (0.6-1.3); GFR ESTIMATE (CALCULATED) 27 mL/min/ (58.99-99999); GLUCOSE 142 mg/dL (70-99); PHOSPHORUS 3.4 mg/dL (2.5-4.9); POTASSIUM 4.2 MEQ/L (3.7-5.4); UREA NITROGEN (BUN) 35 mg/dL (9-23)
[2017-05-17 10:39] LABS: SODIUM 154 MEQ/L (136-147)
[2017-05-17 11:03] VITALS: BP 131/85
[2017-05-17 15:20] VITALS: BP 110/76
[2017-05-17 19:20] VITALS: BP 134/86
[2017-05-18 00:30] VITALS: BP 130/76
[2017-05-18 03:30] VITALS: BP 121/80
[2017-05-18 06:22] LABS: HEMATOCRIT 28.5 % (38.0-50.0); HEMOGLOBIN 9.4 G/DL (12.5-16.6); MCH 31.1 PG (29.0-34.0); MCV 94.4 FL (86-99); PLATELET COUNT 80 K/uL (156-360); RBC DIS.WIDTH-CV 18.9 % (11.8-14.6); RBC DIS.WIDTH-SD 62.4 % (39-53); RED BLOOD COUNT 3.02 M/uL (4.00-5.50); WHITE BLOOD COUNT 3.2 K/uL (4.1-10.2)
[2017-05-18 07:07] LABS: BASOPHIL (%) 0.3 % (0-1); EOSINOPHIL (%) 1.5 % (0-5); EOSINOPHIL COUNT 0.1 K/uL (0-0.3); IMMATURE GRANULOCYTE (%) 0.6 % (0.0-0.7); LYMPHOCYTE (%) 36.8 % (15-42); LYMPHOCYTE COUNT 1.2 K/uL (1.0-2.8); MONOCYTE (%) 1.9 % (3-12); MONOCYTE COUNT 0.1 K/uL (0-0.8); NEUTROPHIL (%) 58.9 % (45-76); NEUTROPHIL COUNT 1.9 K/uL (1.8-6.4)
[2017-05-18 07:28] LABS: ALKALINE PHOSPHATASE 122 IU/L (3-129); ALT (GPT) 15 IU/L (3-49); AST (GOT) 15 IU/L (2-34); CREATININE 2.3 MG/DL (0.6-1.3); GFR ESTIMATE (CALCULATED) 29 mL/min/ (58.99-99999); GLUCOSE 175 mg/dL (70-99); POTASSIUM 3.4 MEQ/L (3.7-5.4); TOTAL BILIRUBIN 0.7 MG/DL (0.0-1.0); TOTAL PROTEIN 7.2 G/DL (6.4-8.3); UREA NITROGEN (BUN) 31 mg/dL (9-23)
[2017-05-18 07:30] LABS: CHLORIDE 103 MEQ/L (99-109); SODIUM 138 MEQ/L (136-147)
[2017-05-18 07:55] VITALS: BP 154/70
[2017-05-18] MEDS ORDERED: LOPRESSOR50 MG PO (12:10)
[2017-05-18] MEDS ORDERED: NABI650T PO (12:10)
[2017-05-18] MEDS ORDERED: LOPRESSOR100 M1 PO (12:10)
[2017-05-18] MEDS ORDERED: VANCOCIN HCL125 MG PO (12:13)
[2017-05-18 12:19] VITALS: BP 140/85
== END 2017-05-18 17:19 | DRG 682 ==
LOC: EME → EDBD 19:28 → EDOF 05-09 01:46 → 4EAST 05-09 01:46 → ENRESERV 05-09 01:50 → 4EAST 05-09 02:53 → ENRESERV 05-12 19:48 → 5SOUTH 05-12 21:20
PROVIDERS: Emergency Medicine; Family Medicine; Hospitalist; Internal Medicine Cardiovascular Disease; Internal Medicine Nephrology; Nurse Practitioner Family; Student in an Organized Health Care Education/Training Program
PROC: 30233N1 Transfusion of Nonautologous Red Blood Cells into Peripheral Vein, Percutaneous Approach (ICD-10-PCS; principal; 2017-05-11)
DX: N17.9 Acute kidney failure, unspecified (principal); G93.41 Metabolic encephalopathy; E87.0 Hyperosmolality and hypernatremia; I21.4 Non-ST elevation (NSTEMI) myocardial infarction; R65.11 Systemic inflammatory response syndrome (SIRS) of non-infectious origin with acute organ dysfunction; E83.52 Hypercalcemia; E86.0 Dehydration; E87.4 Mixed disorder of acid-base balance; A04.72 Enterocolitis due to Clostridium difficile, not specified as recurrent; C90.00 Multiple myeloma not having achieved remission; D62 Acute posthemorrhagic anemia; D61.818 Other pancytopenia; I12.9 Hypertensive chronic kidney disease with stage 1 through stage 4 chronic kidney disease, or unspecified chronic kidney disease; E11.22 Type 2 diabetes mellitus with diabetic chronic kidney disease; N18.3 Chronic kidney disease, stage 3 (moderate); E11.65 Type 2 diabetes mellitus with hyperglycemia; E11.649 Type 2 diabetes mellitus with hypoglycemia without coma; R13.10 Dysphagia, unspecified; R64 Cachexia; R62.7 Adult failure to thrive; F32.9 Major depressive disorder, single episode, unspecified; I25.10 Atherosclerotic heart disease of native coronary artery without angina pectoris; E78.5 Hyperlipidemia, unspecified; K21.9 Gastro-esophageal reflux disease without esophagitis; R33.9 Retention of urine, unspecified; R32 Unspecified urinary incontinence; Z68.1 Body mass index [BMI] 19.9 or less, adult; I25.2 Old myocardial infarction; Z79.4 Long term (current) use of insulin; Z79.82 Long term (current) use of aspirin; Z85.46 Personal history of malignant neoplasm of prostate; Z86.73 Personal history of transient ischemic attack (TIA), and cerebral infarction without residual deficits; Z87.891 Personal history of nicotine dependence; Z95.1 Presence of aortocoronary bypass graft; Z95.5 Presence of coronary angioplasty implant and graft; Z87.311 Personal history of (healed) other pathological fracture
CPT/HCPCS: 36600; 70450; 71045; 74230; 76770; 80048; 80048 91; 80053; 80069; 81003; 82272; 82803; 82948; 83540; 83690; 84466; 84484; 85014; 85018; 85025; 85027; 85610; 85730; 86850; 86900; 86901; 86920; 87040; 87086; 87493; 92526 GN; 92610 GN; 92611 GN; 93005; 97530 GP; 99281; 99285; A6214; J0696; J0881; J1644; J1815; J2270; J7030; J7070; P9016

== ENCOUNTER 2017-05-30 21:52 | Emergency (ER) | payer OTHER, BC ==
[~2017-05-30] VITALS: Ht 175.3 cm; Wt 63.1 kg
[~2017-05-30 21:52] MED LIST changes: +ACYCLOVIR400 MG PO; +BASAGLAR K100 UNIT/1 SC; -DECADRON4 M1 PO; +DECADRON4 MG PO; +DEXAMETHASONE4 MG PO; +IRON325 M1 PO; +K-DUR20 MEQ PO; +LIDODERM 5% P1 PATCH TD; +LOPRESSOR100 M1 PO; +MED PASS 2.0; +MEGACE 40 MG40 MG/ML PO; +METOPROLOL TART50 MG PO; +NINLARO4 MG PO; +VANCOCIN HCL125 MG PO
[2017-05-30 22:51] LABS: ALBUMIN 2.3 g/dL (3.2-4.8); CHLORIDE 113 mEq/L (99-109); HEMATOCRIT 29.1 % (38.0-50.0); HEMOGLOBIN 9.5 G/DL (12.5-16.6); MCH 31.4 PG (29.0-34.0); MCHC 32.6 G/DL (30.0-36.0); NRBC (%) 2.3 /100 WBC (0-0); POTASSIUM 5.2 mEq/L (3.7-5.4); RBC DIS.WIDTH-CV 19.1 % (11.8-14.6); RBC DIS.WIDTH-SD 64.2 % (39-53); RED BLOOD COUNT 3.03 M/uL (4.00-5.50); SODIUM 140 mEq/L (136-147); WHITE BLOOD COUNT 3.4 K/uL (4.1-10.2)
[2017-05-30 22:54] LABS: GLUCOSE 238 mg/dL (70-99); TOTAL PROTEIN 7.8 g/dL (6.4-8.3)
[2017-05-30 22:56] LABS: TOTAL BILIRUBIN 0.5 mg/dL (0.0-1.0)
[2017-05-30 22:57] LABS: ALKALINE PHOSPHATASE 110 IU/L (3-129); CREATININE 2.1 mg/dL (0.6-1.3); GFR ESTIMATE (CALCULATED) 33 mL/min/ (58.99-99999)
[2017-05-30 22:58] LABS: UREA NITROGEN (BUN) 65 mg/dL (9-23)
[2017-05-30 22:59] LABS: AST (GOT) 18 IU/L (2-34)
[2017-05-30 23:00] LABS: ALT (GPT) 29 IU/L (3-49)
[2017-05-30 23:03] LABS: TROP-I INTERPRETATION NEGATIVE; TROPONIN-I 0.06 ng/mL (0.0-0.30)
[2017-05-30 23:33] LABS: BASOPHIL (%) 0 % (0-1); EOSINOPHIL (%) 0 % (0-5); IMM.PLATELET FRACTION 15.7 (1-7); IMM.RETIC FRACTION 14.6 % (3-19); IMMATURE GRANULOCYTE (%) 1.2 % (0.0-0.7); LYMPHOCYTE (%) 11.7 % (15-42); LYMPHOCYTE COUNT 0.4 K/uL (1.0-2.8); MONOCYTE (%) 1.2 % (3-12); NEUTROPHIL (%) 85.9 % (45-76); NEUTROPHIL COUNT 2.9 K/uL (1.8-6.4); PLAT.SUFFICIENCY VERY DECREASED; PLATELET COUNT 21 K/uL (156-360); RETIC HGB EQUIVALENT 41.5 (28-36); RETICULOCYTE COUNT 0.8 % (0.5-1.8)
[2017-05-31 01:38] VITALS: BP 131/94
== END 2017-05-31 01:54 ==
LOC: EME → EDBD 21:52 → EME 05-31 01:54
PROVIDERS: Emergency Medicine Emergency Medical Services
DX: D69.6 Thrombocytopenia, unspecified (principal); C90.00 Multiple myeloma not having achieved remission; D64.9 Anemia, unspecified; D61.818 Other pancytopenia; Z92.21 Personal history of antineoplastic chemotherapy; I12.9 Hypertensive chronic kidney disease with stage 1 through stage 4 chronic kidney disease, or unspecified chronic kidney disease; N18.9 Chronic kidney disease, unspecified; I50.9 Heart failure, unspecified; E11.9 Type 2 diabetes mellitus without complications; K21.9 Gastro-esophageal reflux disease without esophagitis; I69.354 Hemiplegia and hemiparesis following cerebral infarction affecting left non-dominant side; M48.00 Spinal stenosis, site unspecified; I25.2 Old myocardial infarction; F32.9 Major depressive disorder, single episode, unspecified; Z87.891 Personal history of nicotine dependence; Z85.46 Personal history of malignant neoplasm of prostate; Z95.1 Presence of aortocoronary bypass graft; Z79.4 Long term (current) use of insulin; Z79.82 Long term (current) use of aspirin
CPT/HCPCS: 80053; 84484; 85025 91; 85046; 99281; 99285

== ENCOUNTER 2017-06-03 11:53 | Inpatient (IN) | payer OTHER, BC ==
[~2017-06-03] VITALS: Ht 177.8 cm; Wt 59.6 kg
[~2017-06-03 11:53] MED LIST changes: +DECADRON4 M1 PO; -DEXAMETHASONE4 MG PO
[2017-06-03 12:41] LABS: INTER. NORMALIZED RATIO 1.5
[2017-06-03 12:46] LABS: BASOPHIL (%) 0 % (0-1); EOSINOPHIL (%) 0 % (0-5); HEMATOCRIT 31.8 % (38.0-50.0); IMMATURE GRANULOCYTE (%) 0.7 % (0.0-0.7); LYMPHOCYTE (%) 8.5 % (15-42); LYMPHOCYTE COUNT 0.5 K/uL (1.0-2.8); MCH 31.2 PG (29.0-34.0); MCHC 31.4 G/DL (30.0-36.0); MCV 99.1 FL (86-99); MONOCYTE (%) 1.8 % (3-12); MONOCYTE COUNT 0.1 K/uL (0-0.8); NEUTROPHIL COUNT 4.9 K/uL (1.8-6.4); NRBC (%) 0.4 /100 WBC (0-0); RBC DIS.WIDTH-CV 20.1 % (11.8-14.6); RBC DIS.WIDTH-SD 68.4 % (39-53); RED BLOOD COUNT 3.21 M/uL (4.00-5.50); WHITE BLOOD COUNT 5.5 K/uL (4.1-10.2)
[2017-06-03 12:47] LABS: PTT 29.1 SEC (25-37)
[2017-06-03 12:58] LABS: TROP-I INTERPRETATION NEGATIVE; TROPONIN-I 0.19 ng/mL (0.0-0.30)
[2017-06-03 13:05] LABS: CHLORIDE 116 mEq/L (99-109); SODIUM 144 mEq/L (136-147)
[2017-06-03 13:07] LABS: GLUCOSE 149 mg/dL (70-99)
[2017-06-03 13:11] LABS: CREATININE 1.8 mg/dL (0.6-1.3); GFR ESTIMATE (CALCULATED) 39 mL/min/ (58.99-99999); UREA NITROGEN (BUN) 67 mg/dL (9-23)
[2017-06-03 13:15] LABS: ANISOCYTOSIS 2+; IMM.PLATELET FRACTION 19.1 (1-7); MACROCYTES 2+; MICROCYTOSIS 1+; PLAT.SUFFICIENCY VERY DECREASED
[2017-06-03 13:38] LABS: PLATELET COUNT 26 K/uL (156-360)
[2017-06-03] MEDS ORDERED: DIFLUCAN200 MG PO (15:35)
[2017-06-03] MEDS ORDERED: LOPRESSOR50 MG PO (15:39)
[2017-06-03] MEDS ORDERED: NINLARO4 MG PO (15:40)
[2017-06-03] MEDS ORDERED: ULTRAM50 MG PO (15:42)
[2017-06-03] MEDS ORDERED: MIRALAX17 GM PO (15:45)
[2017-06-03] MEDS ORDERED: MILK OF MAGN PO (15:45)
[2017-06-03 18:46] LABS: TROP-I INTERPRETATION NEGATIVE; TROPONIN-I 0.21 ng/mL (0.0-0.30)
[2017-06-03 18:56] VITALS: BP 136/88
[2017-06-03 19:09] VITALS: BP 137/86
[2017-06-03 22:58] VITALS: BP 143/98
[2017-06-04 00:53] LABS: TROP-I INTERPRETATION NEGATIVE; TROPONIN-I 0.16 ng/mL (0.0-0.30)
[2017-06-04 04:42] VITALS: BP 146/95
[2017-06-04 06:31] LABS: HEMATOCRIT 31.2 % (38.0-50.0); HEMOGLOBIN 9.8 G/DL (12.5-16.6); MCH 30.5 PG (29.0-34.0); MCHC 31.4 G/DL (30.0-36.0); MCV 97.2 FL (86-99); NRBC (%) 0.4 /100 WBC (0-0); RBC DIS.WIDTH-CV 19.9 % (11.8-14.6); RBC DIS.WIDTH-SD 66.8 % (39-53); RED BLOOD COUNT 3.21 M/uL (4.00-5.50); WHITE BLOOD COUNT 5.6 K/uL (4.1-10.2)
[2017-06-04 06:43] VITALS: BP 145/94
[2017-06-04 06:44] LABS: IMM.PLATELET FRACTION 16.4 (1-7); PLAT.SUFFICIENCY VERY DECREASED; PLATELET COUNT 32 K/uL (156-360)
[2017-06-04 08:02] LABS: CHLORIDE 112 MEQ/L (99-109); CREATININE 1.9 MG/DL (0.6-1.3); GFR ESTIMATE (CALCULATED) 37 mL/min/ (58.99-99999); GLUCOSE 118 mg/dL (70-99); POTASSIUM 4.6 MEQ/L (3.7-5.4); SODIUM 142 MEQ/L (136-147); UREA NITROGEN (BUN) 66 mg/dL (9-23)
[2017-06-04 12:00] VITALS: BP 133/82
[2017-06-04 15:01] VITALS: BP 107/67
[2017-06-04 19:27] VITALS: BP 105/56
[2017-06-04 23:43] VITALS: BP 153/87
[2017-06-05 04:13] VITALS: BP 139/78
[2017-06-05 07:04] LABS: HEMATOCRIT 30.6 % (38.0-50.0); HEMOGLOBIN 9.7 G/DL (12.5-16.6); MCH 30.4 PG (29.0-34.0); MCHC 31.7 G/DL (30.0-36.0); MCV 95.9 FL (86-99); NRBC (%) 0.4 /100 WBC (0-0); RBC DIS.WIDTH-CV 19.7 % (11.8-14.6); RBC DIS.WIDTH-SD 66.4 % (39-53); RED BLOOD COUNT 3.19 M/uL (4.00-5.50)
[2017-06-05 07:30] VITALS: BP 153/77
[2017-06-05 07:34] LABS: IMM.PLATELET FRACTION 15.5 (1-7); PLAT.SUFFICIENCY DECREASED; PLATELET COUNT 39 K/uL (156-360)
[2017-06-05 08:10] LABS: CHLORIDE 110 MEQ/L (99-109); CREATININE 1.9 MG/DL (0.6-1.3); GFR ESTIMATE (CALCULATED) 37 mL/min/ (58.99-99999); SODIUM 144 MEQ/L (136-147); UREA NITROGEN (BUN) 63 mg/dL (9-23)
[2017-06-05 08:12] LABS: POTASSIUM 3.5 MEQ/L (3.7-5.4)
[2017-06-05 08:15] LABS: GLUCOSE 44 mg/dL (70-99)
[2017-06-05 11:53] VITALS: BP 144/80
[2017-06-05 17:34] VITALS: BP 125/65
[2017-06-05 20:54] VITALS: BP 100/61
[2017-06-05 23:50] VITALS: BP 116/65
[2017-06-06 03:17] VITALS: BP 118/67
[2017-06-06 08:22] VITALS: BP 134/75
[2017-06-06 10:54] VITALS: BP 93/51
[2017-06-06 15:59] VITALS: BP 120/76
[2017-06-06 19:56] VITALS: BP 122/71
[2017-06-06 23:34] VITALS: BP 115/62
[2017-06-07 00:12] LABS: C DIFF TOXIN POSITIVE (NEGATIVE)
[2017-06-07 07:00] VITALS: BP 134/82
[2017-06-07 07:05] LABS: HEMATOCRIT 28.5 % (38.0-50.0); HEMOGLOBIN 9.2 G/DL (12.5-16.6); MCH 30.6 PG (29.0-34.0); MCHC 32.3 G/DL (30.0-36.0); MCV 94.7 FL (86-99); RBC DIS.WIDTH-CV 19.5 % (11.8-14.6); RBC DIS.WIDTH-SD 64.7 % (39-53); RED BLOOD COUNT 3.01 M/uL (4.00-5.50); WHITE BLOOD COUNT 4.3 K/uL (4.1-10.2)
[2017-06-07 07:27] LABS: PLAT.SUFFICIENCY DECREASED
[2017-06-07 07:31] LABS: IMM.PLATELET FRACTION 12.9 (1-7); PLATELET COUNT 49 K/uL (156-360)
[2017-06-07 08:00] LABS: CHLORIDE 105 MEQ/L (99-109); CREATININE 1.8 MG/DL (0.6-1.3); GFR ESTIMATE (CALCULATED) 39 mL/min/ (58.99-99999); POTASSIUM 4.1 MEQ/L (3.7-5.4); SODIUM 137 MEQ/L (136-147); UREA NITROGEN (BUN) 63 mg/dL (9-23)
[2017-06-07 08:01] LABS: GLUCOSE 195 mg/dL (70-99)
[2017-06-07 12:04] LABS: IMMUNOGLOBULIN G 274 MG/DL (650-1600)
[2017-06-07 12:07] LABS: IMMUNOGLOBULIN M < 20 MG/DL (50-300)
[2017-06-07 15:00] VITALS: BP 131/79
[2017-06-07 17:51] LABS: ALBUMIN 2.3 G/DL (3.4-5.0)
[2017-06-07 17:56] LABS: A/G RATIO 0.5 (1.1-1.8); GLOBULINS 4.3 G/DL (2.3-3.5); TOTAL PROTEIN 6.6 G/DL (6.4-8.2)
[2017-06-07 23:35] VITALS: BP 136/82
[2017-06-08 08:05] VITALS: BP 138/82
[2017-06-08 09:50] VITALS: BP 140/82
[2017-06-08 11:16] VITALS: BP 140/80
[2017-06-08 16:58] VITALS: BP 122/74
[2017-06-09] VITALS: BP 111/60
[2017-06-09 06:33] LABS: HEMATOCRIT 27.8 % (38.0-50.0); HEMOGLOBIN 9.1 G/DL (12.5-16.6); MCH 31.5 PG (29.0-34.0); MCHC 32.7 G/DL (30.0-36.0); MCV 96.2 FL (86-99); PLATELET COUNT 64 K/uL (156-360); RBC DIS.WIDTH-CV 19.6 % (11.8-14.6); RBC DIS.WIDTH-SD 65.1 % (39-53); RED BLOOD COUNT 2.89 M/uL (4.00-5.50); WHITE BLOOD COUNT 3.1 K/uL (4.1-10.2)
[2017-06-09 07:38] LABS: CHLORIDE 104 MEQ/L (99-109); CREATININE 1.8 MG/DL (0.6-1.3); GFR ESTIMATE (CALCULATED) 39 mL/min/ (58.99-99999); MAGNESIUM 1.5 mg/dl (1.3-2.7); POTASSIUM 3.7 MEQ/L (3.7-5.4); SODIUM 139 MEQ/L (136-147); UREA NITROGEN (BUN) 56 mg/dL (9-23)
[2017-06-09 07:42] LABS: GLUCOSE 83 mg/dL (70-99)
[2017-06-09 07:56] VITALS: BP 132/76
[2017-06-09 11:22] VITALS: BP 110/68
[2017-06-09] MEDS ORDERED: ZINC OXIDE56.7 GM TP (11:41)
[2017-06-09] MEDS ORDERED: IMDUR30 MG PO (11:41)
[2017-06-09] MEDS ORDERED: HYDROCODON-ACE1 EAC7 PO (11:41)
[2017-06-09] MEDS ORDERED: FERROUS SULFAT325 MG PO (11:41)
[2017-06-09] MEDS ORDERED: FUROSEMIDE40 MG PO (11:41)
[2017-06-09] MEDS ORDERED: VANCOMYCIN HCL125 MG PO (11:48)
[2017-06-09] MEDS ORDERED: ASPIR-LOW81 MG PO (11:52)
[2017-06-09 15:00] VITALS: BP 111/71
[2017-06-11 10:03] LABS: ALBUMIN 2.24 G/DL (3.6-4.9); ALPHA-1 GLOBULIN 0.32 G/DL (0.15-0.40); ALPHA-2 GLOBULIN 0.96 G/DL (0.45-0.85); GAMMA-GLOBULIN 2.48 G/DL (0.60-1.35)
== END 2017-06-09 18:55 | DRG 291 ==
LOC: EME 11:53 → EDOF 14:42 → 5EAST 14:42 → ENRESERV 14:44 → 5EAST 17:52
PROVIDERS: Emergency Medicine; Internal Medicine; Physician Assistant
DX: I13.0 Hypertensive heart and chronic kidney disease with heart failure and stage 1 through stage 4 chronic kidney disease, or unspecified chronic kidney disease (principal); I50.21 Acute systolic (congestive) heart failure; A04.71 Enterocolitis due to Clostridium difficile, recurrent; E87.2 Acidosis; C90.00 Multiple myeloma not having achieved remission; N18.3 Chronic kidney disease, stage 3 (moderate); I08.1 Rheumatic disorders of both mitral and tricuspid valves; E11.22 Type 2 diabetes mellitus with diabetic chronic kidney disease; I25.2 Old myocardial infarction; R64 Cachexia; I25.10 Atherosclerotic heart disease of native coronary artery without angina pectoris; I69.351 Hemiplegia and hemiparesis following cerebral infarction affecting right dominant side; Z87.891 Personal history of nicotine dependence; Z95.1 Presence of aortocoronary bypass graft; Z95.5 Presence of coronary angioplasty implant and graft; Z74.01 Bed confinement status; I27.20 Pulmonary hypertension, unspecified; D69.6 Thrombocytopenia, unspecified; E11.649 Type 2 diabetes mellitus with hypoglycemia without coma; E78.5 Hyperlipidemia, unspecified; K21.9 Gastro-esophageal reflux disease without esophagitis; F03.90 Unspecified dementia, unspecified severity, without behavioral disturbance, psychotic disturbance, mood disturbance, and anxiety; R33.9 Retention of urine, unspecified; S00.83XA Contusion of other part of head, initial encounter; W05.0XXA Fall from non-moving wheelchair, initial encounter; Y92.129 Unspecified place in nursing home as the place of occurrence of the external cause; R32 Unspecified urinary incontinence; D63.0 Anemia in neoplastic disease; Z85.46 Personal history of malignant neoplasm of prostate
CPT/HCPCS: 70450; 71045; 80048; 82784; 82948; 83735; 83880; 83883 90; 84134; 84165; 84484; 85025; 85027; 85610; 85730; 86334; 87493; 93005; 93306; 99281; 99285; J1815; J1940; J8540